=== PATIENT | female | born 1930 | race Caucasian/White ===

== ENCOUNTER 2017-03-08 19:40 | Emergency (ER) | payer MEDICARE, OTHER ==
--- NOTE | 2017-03-08 22:29 | ER Document Report ---
ED GI/ - General Mode of Arrival: Ambulatory Information source: Patient, Relative - son TRAVEL OUTSIDE OF THE [place] IN LAST 30 DAYS: No - HPI Patient complains to provider of: Abdominal pain, Diarrhea, Vaginal bleeding Onset: This evening - Refer to HPI notes Vaginal bleeding (Compared to normal period): Bright red Menstrual period history: Post-menopausal Similar symptoms previously: Yes Recently seen / treated by doctor: No <AKBAR PRATT - Last Filed: 03/09/17 00:11> <BHAVNA SERNA - Last Filed: 03/09/17 05:48> - General Chief Complaint: Rectal Bleeding Stated Complaint: RECTAL BLEEDING Time Seen by Provider: 03/08/17 22:07 Notes: Patient is an 86 year old female presenting to the emergency department for possible rectal bleeding. Patient states she is unsure if her bleeding is coming from her rectum, vagina, or urethra. Patient states it started around 18: 00 or 19:00 this evening. Patient states she has a history of colitis and is unsure if this is a flareup. Patient also has some mild lower abdominal pain which she rates as a 3/5 on the pain scale. Patient also had some episodes of diarrhea this afternoon. Patient denies any vomiting or fever. Patient is allergic to sulfa drugs. Patient's primary care physician is Dr. Caro. (AKBAR PRATT) - Related Data Allergies/Adverse Reactions: Sulfa (Sulfonamide Antibiotics) Allergy (Mild, Verified 03/08/17 20:38) rash Past Medical History - General Information source: Patient, Relative - son - Social History Smoking Status: Never Smoker Cigarette use (# per day): No Chew tobacco use (# tins/day): No Frequency of alcohol use: None Drug Abuse: None Family History: None Patient has suicidal ideation: No Patient has homicidal ideation: No - Past Medical History Cardiac Medical History: Reports: Hx Hypercholesterolemia, Hx Hypertension Endocrine Medical History: Reports: Hx Diabetes Mellitus Type 2 GI Medical History: Reports: Hx Gastroesophageal Reflux Disease, Hx Ulcerative Colitis Musculoskeltal Medical History: Reports Hx Arthritis Past Surgical History: Reports: Hx Genitourinary Surgery - Sling, Hx Hysterectomy - Immunizations Hx Diphtheria, Pertussis, Tetanus Vaccination: Yes Hx Pneumococcal Vaccination: 07/25/11 <AKBAR PRATT - Last Filed: 03/09/17 00:11> Review of Systems - Review of Systems Constitutional: No symptoms reported. denies: Fever EENT: No symptoms reported Cardiovascular: No symptoms reported Respiratory: No symptoms reported Gastrointestinal: See HPI, Abdominal pain, Diarrhea, Rectal bleeding. denies: Nausea, Vomiting Genitourinary: No symptoms reported Female Genitourinary: See HPI, Vaginal bleeding Musculoskeletal: No symptoms reported Skin: No symptoms reported Hematologic/Lymphatic: No symptoms reported Neurological/Psychological: No symptoms reported -: Yes All other systems reviewed and negative <AKBAR PRATT - Last Filed: 03/09/17 00:11> Physical Exam <AKBAR PRATT - Last Filed: 03/09/17 00:11> <BHAVNA SERNA - Last Filed: 03/09/17 05:48> - Vital signs Vitals: Temp Pulse Resp BP Pulse Ox 98.0 F 95 16 130/69 H 94 03/08/17 20:37 03/08/17 20:37 03/08/17 20:37 03/08/17 20:37 03/08/17 20:37 - Notes Notes: GENERAL: Alert, interacts well. No acute distress. HEAD: Normocephalic, atraumatic. EYES: Pupils equal, round, and reactive to light. Extraocular movements intact. ENT: Oral mucosa moist, tongue midline. NECK: Full range of motion. Supple. Trachea midline. LUNGS: Clear to auscultation bilaterally, no wheezes, rales, or rhonchi. No respiratory distress. HEART: Regular rate and rhythm. No murmurs, gallops, or rubs. ABDOMEN: Soft, non-tender. Non-distended. Bowel sounds present in all 4 quadrants.* PELVIC: Blood appears to be coming from the vagina or urethra, no active bleeding.* RECTAL: No blood in rectum, soft brown stool, good rectal tone, no melena. EXTREMITIES: Moves all 4 extremities spontaneously. No edema. No cyanosis. NEUROLOGICAL: Alert and oriented x3. Normal speech. PSYCH: Normal affect, normal mood. SKIN: Warm, dry, normal turgor. No rashes or lesions noted. *Pelvic and Rectal Exam were supervised by Judy Dominguez RN. (AKBAR PRATT) Course - Laboratory Result Diagrams: 03/08/17 22:55 03/08/17 22:55 <AKBAR PRATT - Last Filed: 03/09/17 00:11> - Laboratory Result Diagrams: 03/08/17 22:55 03/08/17 22:55 <BHAVNA SERNA - Last Filed: 03/09/17 05:48> - Re-evaluation Re-evalutation: 03/09/17 01:40 CBC unremarkable, CMP shows slightly elevated BUN at 34 otherwise unremarkable, PTT slightly prolonged at 38.1, PT normal, urinalysis is grossly bloody with small leukocyte esterase. Leukocyte esterase likely comes from the grossly bloody urine rather than true infection. CT scan shows 4.7 mass in the posterior right urinary bladder. No evidence of stone or pyelonephritis. Discussed with patient the importance of quick urology follow-up as this quite possibly represents cancer. Patient has follow-up appointment with her primary care physician tomorrow, information will be printed out for her to take to her primary care physician to help him arrange follow-up with urology as an outpatient. No evidence of obstruction from clots at this time. Patient will return should she have any difficulty urinating. (BHAVNA SERNA) - Vital Signs Vital signs: Temp Pulse Resp BP Pulse Ox 97.6 F 99 18 124/67 95 03/09/17 02:00 03/09/17 02:00 03/09/17 02:00 03/09/17 02:00 03/09/17 02:00 - Laboratory Laboratory results interpreted by me: 03/08/17 03/08/17 03/08/17 20:50 22:55 22:55 RDW 16.3 H APTT Sodium 136.1 L BUN 34 H Est GFR ( Amer) 59 L Est GFR (Non-Af Amer) 48 L Urine Protein >=500 H Ur Leukocyte Esterase SMALL H Urine Ascorbic Acid 20 H 03/08/17 22:55 RDW APTT 38.1 H Sodium BUN Est GFR ( Amer) Est GFR (Non-Af Amer) Urine Protein Ur Leukocyte Esterase Urine Ascorbic Acid Discharge <AKBAR PRATT - Last Filed: 03/09/17 00:11> <BHAVNA SERNA - Last Filed: 03/09/17 05:48> - Discharge Clinical Impression: Bladder mass, Hematuria Condition: Stable Disposition: HOME, SELF-CARE Additional Instructions: You have a 4.2 cm mass in your bladder. It is very important that you are seen by urology within the next month to have this evaluated further. This may be cancer. The mass in your bladder is causing the bleeding. There is no sign of infection today. Please urinate every 2 hours during the day and at least every 4 hours at night. The blood clots coming from your bladder may prevent you from being able to urinate. If that happens you will need a catheter. Please return to the emergency department if you are unable to urinate. Referrals: GLORIA SHEPPARD MD [Primary Care Provider] - Follow up tomorrow Scribe Attestation: 03/09/17 05:48 I personally performed the services described in the documentation, reviewed and edited the documentation which was dictated to the scribe in my presence, and it accurately records my words and actions. (BHAVNA SERNA) Scribe Documentation - Scribe Written by Morgan:: Morgan Palma, 03/08/17 22:45 acting as scribe for :: Aleida <AKBAR PRATT - Last Filed: 03/09/17 00:11>
[2017-03-08 23:17] LABS: APPEARANCE,URINE CLOUDY; BILIRUBIN,URINE NEGATIVE (NEGATIVE); GLUCOSE, URINE NEGATIVE (NEGATIVE); KETONES,URINE NEGATIVE (NEGATIVE); LEUKOCYTE ESTERASE,URINE SMALL (NEGATIVE); NITRITE,URINE NEGATIVE (NEGATIVE); PROTEIN,URINE >=500 mg/dL (NEGATIVE); URINE SPECIFIC GRAVITY 1.014; UROBILINOGEN,URINE NEGATIVE mg/dL (<2.0)
[2017-03-08 23:19] LABS: PROTHROMBIN TIME 13.1 SEC (11.4-15.4)
[2017-03-08 23:20] LABS: PARTIAL THROMBOPLASTIN TIME 38.1 SEC (23.5-35.8)
[2017-03-08 23:22] LABS: ABSOLUTE EOSINOPHILS # (AUTO) 0.2 10^3/uL (0.0-0.6); ABSOLUTE LYMPHOCYTES (AUTO) 1.3 10^3/uL (0.5-4.7); ABSOLUTE MONOCYTES (AUTO) 0.8 10^3/uL (0.1-1.4); BASOPHILS % (AUTO) 0.4 % (0-2); EOSINOPHILS % (AUTO) 2.1 % (0-6); HEMATOCRIT 43.3 % (36.0-47.0); HEMOGLOBIN 14.3 g/dL (12.0-15.5); HGB HCT DIFFERENCE -0.4; LYMPHOCYTES % (AUTO) 13.7 % (13-45); MEAN CORPUSCULAR HEMOGLOBIN 27.4 pg (27.0-33.4); MEAN CORPUSCULAR VOLUME 83 fl (80-97); MONOCYTES % (AUTO) 8.7 % (3-13); RED BLOOD COUNT 5.21 10^6/uL (3.72-5.28); RED CELL DISTRIBUTION WIDTH 16.3 % (11.5-14.0); SEGMENTED NEUTROPHILS % (AUTO) 75.1 % (42-78); WHITE BLOOD COUNT 9.3 10^3/uL (4.0-10.5)
[2017-03-08 23:31] LABS: ALANINE AMINOTRANSFERASE 34 U/L (9-52); ALBUMIN 3.6 g/dL (3.5-5.0); ALKALINE PHOSPHATASE 83 U/L (38-126); ANION GAP 13 (5-19); ASPARTATE AMINO TRANSFERASE 33 U/L (14-36); BILIRUBIN,DIRECT 0.4 mg/dL (0.0-0.4); BILIRUBIN,TOTAL 0.6 mg/dL (0.2-1.3); BLOOD UREA NITROGEN 34 mg/dL (7-20); CALCIUM 9.9 mg/dL (8.4-10.2); CARBON DIOXIDE 24 mmol/L (22-30); CHLORIDE 99 mmol/L (98-107); CREATININE RESULT 1.07 mg/dL (0.52-1.25); GLUCOSE 106 mg/dL (75-110); SODIUM 136.1 mmol/L (137-145); TOTAL PROTEIN 6.6 g/dL (6.3-8.2)
[2017-03-09 02:46] VITALS: BP 124/67
== END 2017-03-09 02:00 | disposition home or self-care (01) ==
LOC: ER 19:40
DX: N32.89 Other specified disorders of bladder (principal); R31.9 Hematuria, unspecified; R10.9 Unspecified abdominal pain; R19.7 Diarrhea, unspecified; E78.00 Pure hypercholesterolemia, unspecified; I10 Essential (primary) hypertension; E11.9 Type 2 diabetes mellitus without complications; K21.9 Gastro-esophageal reflux disease without esophagitis; Z88.2 Allergy status to sulfonamides; Z90.710 Acquired absence of both cervix and uterus
CPT/HCPCS: 36415; 51701; 76380; 80053; 81001; 85025; 85610; 85730; 87086; 87088; 87186; 99284

== ENCOUNTER 2017-03-22 19:16 | Inpatient (IN) | payer MEDICARE, OTHER ==
[2017-03-22] MEDS ORDERED: NORMAL SALINE 1000 ML 1,000 ML IV ONE (20:38)
[2017-03-22 21:24] LABS: ABSOLUTE BASOPHILS # (AUTO) 0.1 10^3/uL (0.0-0.2); ABSOLUTE LYMPHOCYTES (AUTO) 1.2 10^3/uL (0.5-4.7); ABSOLUTE MONOCYTES (AUTO) 1.3 10^3/uL (0.1-1.4); ABSOLUTE NEUT (AUTO) 15.1 10^3/uL (1.7-8.2); BASOPHILS % (AUTO) 0.4 % (0-2); EOSINOPHILS % (AUTO) 0.1 % (0-6); HEMOGLOBIN 12.9 g/dL (12.0-15.5); HGB HCT DIFFERENCE -1.3; LYMPHOCYTES % (AUTO) 6.9 % (13-45); MEAN CORPUSCULAR HEMOGLOBIN 26.9 pg (27.0-33.4); MEAN CORPUSCULAR HGB CONC 32.4 g/dL (32.0-36.0); MEAN CORPUSCULAR VOLUME 83 fl (80-97); MONOCYTES % (AUTO) 7.5 % (3-13); RED BLOOD COUNT 4.81 10^6/uL (3.72-5.28); RED CELL DISTRIBUTION WIDTH 15.6 % (11.5-14.0); SEGMENTED NEUTROPHILS % (AUTO) 85.1 % (42-78); WHITE BLOOD COUNT 17.7 10^3/uL (4.0-10.5)
[2017-03-22 22:23] LABS: ALANINE AMINOTRANSFERASE 29 U/L (9-52); ALBUMIN 3.2 g/dL (3.5-5.0); ALKALINE PHOSPHATASE 60 U/L (38-126); ANION GAP 10 (5-19); ASPARTATE AMINO TRANSFERASE 25 U/L (14-36); BILIRUBIN,DIRECT 0.3 mg/dL (0.0-0.4); BILIRUBIN,TOTAL 0.8 mg/dL (0.2-1.3); BLOOD UREA NITROGEN 31 mg/dL (7-20); CALCIUM 8.6 mg/dL (8.4-10.2); CARBON DIOXIDE 21 mmol/L (22-30); CHLORIDE 95 mmol/L (98-107); CREATINE KINASE 55 U/L (30-135); CREATININE RESULT 1.19 mg/dL (0.52-1.25); GLUCOSE 94 mg/dL (75-110); POTASSIUM 4.8 mmol/L (3.6-5.0); SODIUM 125.8 mmol/L (137-145); TOTAL PROTEIN 6.3 g/dL (6.3-8.2)
[2017-03-22 22:35] LABS: CREATINE KINASE MB 1.08 ng/mL (<4.55); TROPONIN I < 0.012 ng/mL
[2017-03-22 22:42] LABS: APPEARANCE,URINE CLOUDY; BILIRUBIN,URINE NEGATIVE (NEGATIVE); GLUCOSE, URINE NEGATIVE (NEGATIVE); KETONES,URINE NEGATIVE (NEGATIVE); LEUKOCYTE ESTERASE,URINE LARGE (NEGATIVE); NITRITE,URINE NEGATIVE (NEGATIVE); PROTEIN,URINE 30 mg/dL (NEGATIVE); URINE SPECIFIC GRAVITY 1.006; UROBILINOGEN,URINE NEGATIVE mg/dL (<2.0)
[2017-03-22] MEDS ORDERED: CEFTRIAXONE 1 GM/D5W RTU 50 ML IV ONE (22:44)
--- NOTE | 2017-03-22 23:15 | ER Document Report ---
ED General - General Chief Complaint: Weakness Stated Complaint: WEAKNESS Time Seen by Provider: 03/22/17 20:38 Mode of Arrival: Ambulatory Information source: Patient, Parent Notes: 86-year-old female recent diagnosis of UTI presents with complaints of weakness decreased appetite. Patient denies any fevers or chills notes she was recently placed on Cipro TRAVEL OUTSIDE OF THE [place] IN LAST 30 DAYS: No - HPI Onset: Last week Onset/Duration: Persistent Quality of pain: No pain Severity: Mild Pain Level: Denies Associated symptoms: Weakness Exacerbated by: Denies Relieved by: Denies Similar symptoms previously: Yes Recently seen / treated by doctor: Yes - Related Data Allergies/Adverse Reactions: Sulfa (Sulfonamide Antibiotics) Allergy (Mild, Verified 03/22/17 19:40) rash Past Medical History - Social History Smoking Status: Never Smoker Cigarette use (# per day): No Chew tobacco use (# tins/day): No Smoking Education Provided: No Frequency of alcohol use: None Drug Abuse: None Family History: None Patient has suicidal ideation: No Patient has homicidal ideation: No - Past Medical History Cardiac Medical History: Reports: Hx Hypercholesterolemia, Hx Hypertension Endocrine Medical History: Reports: Hx Diabetes Mellitus Type 2 Renal/ Medical History: Denies: Hx Peritoneal Dialysis GI Medical History: Reports: Hx Gastroesophageal Reflux Disease, Hx Ulcerative Colitis Musculoskeltal Medical History: Reports Hx Arthritis Past Surgical History: Reports: Hx Genitourinary Surgery - Sling, Hx Hysterectomy - Immunizations Hx Diphtheria, Pertussis, Tetanus Vaccination: Yes Hx Pneumococcal Vaccination: 07/25/11 Review of Systems - Review of Systems Notes: PHYSICAL EXAMINATION: GENERAL: Elderly female appears younger than stated age HEAD: Atraumatic, normocephalic. EYES: Pupils equal round and reactive to light, extraocular movements intact, conjunctiva are normal. ENT: Nares patent, oropharynx clear without exudates. Moist mucous membranes. NECK: Normal range of motion, supple without lymphadenopathy LUNGS: Breath sounds clear to auscultation bilaterally and equal. No wheezes rales or rhonchi. HEART: Regular rate and rhythm without murmurs ABDOMEN: Soft, nontender, nondistended abdomen. No guarding, no rebound. No masses appreciated. Female : deferred Musculoskeletal: Normal range of motion, no pitting or edema. No cyanosis. NEUROLOGICAL: Cranial nerves grossly intact. Normal speech, normal gait. Normal sensory, motor exams PSYCH: Normal mood, normal affect. SKIN: Warm, Dry, normal turgor, no rashes or lesions noted. Physical Exam - Vital signs Vitals: Temp Pulse Resp BP Pulse Ox 98.1 F 110 H 18 103/56 L 95 03/22/17 19:37 03/22/17 19:37 03/22/17 19:37 03/22/17 19:37 03/22/17 19:37 Course - Re-evaluation Re-evalutation: 03/22/17 23:38 Patient's white count was noted to be elevated, she was slightly tachycardic. Patient does have a urinary tract infection. Given that she is infectious process a septic workup has been ordered. Lactic acid is pending. Patient was given IV fluids and antibiotics. Patient will be admitted to the hospitalist service - Vital Signs Vital signs: Temp Pulse Resp BP Pulse Ox 98.1 F 110 H 19 108/70 98 03/22/17 19:37 03/22/17 19:37 03/22/17 21:44 03/22/17 21:44 03/22/17 21:44 - Laboratory Result Diagrams: 03/22/17 21:08 03/22/17 21:50 Laboratory results interpreted by me: 03/22/17 03/22/17 03/22/17 21:08 21:50 21:50 WBC 17.7 H MCH 26.9 L RDW 15.6 H Seg Neutrophils % 85.1 H Lymphocytes % 6.9 L Absolute Neutrophils 15.1 H Sodium 125.8 L Chloride 95 L Carbon Dioxide 21 L BUN 31 H Est GFR ( Amer) 52 L Est GFR (Non-Af Amer) 43 L Albumin 3.2 L Urine Protein 30 H Urine Blood SMALL H Ur Leukocyte Esterase LARGE H Discharge - Discharge Clinical Impression: Weakness, Hyponatremia UTI (urinary tract infection) Qualifiers: Urinary tract infection type: acute cystitis Hematuria presence: without hematuria Qualified Code(s): N30.00 - Acute cystitis without hematuria Sepsis Qualifiers: Sepsis type: sepsis due to unspecified organism Qualified Code(s): A41.9 - Sepsis, unspecified organism Condition: Stable Disposition: ADMITTED INPATIENT Admitting Provider: Hospitalist Unit Admitted: Telemetry Referrals: GLORAI SHEPPARD MD [Primary Care Provider] - Follow up as needed
[2017-03-22] MEDS ORDERED: MAGNESIUM HYDROXIDE SUSP 30 ML UDCUP PO PRN (23:20)
[2017-03-22] MEDS ORDERED: MAG HYDROX/AL HYDROX/SIMETH SUSP 30 ML UDCUP PO PRN (23:20)
[2017-03-22] MEDS ORDERED: ONDANSETRON HCL INJ/PF 4 MG/2 ML SDV IV PRN (23:20)
[2017-03-22] MEDS ORDERED: IPRATROPIUM/ALBUTEROL 0.5-2.5 MG/3 ML AMPUL NEB PRN (23:20)
[2017-03-22] MEDS ORDERED: LACTULOSE SYRUP 20 GM/30 ML UDCUP PO ONE (23:23)
[2017-03-22] MEDS ORDERED: MINERAL OIL ENEMA 133 ML PR PRN (23:24)
[2017-03-22 23:47] LABS: MAGNESIUM 1.7 mg/dL (1.6-2.3); PHOSPHORUS 3.5 mg/dL (2.5-4.5)
[2017-03-23 00:33] LABS: CREATINE KINASE MB 1.39 ng/mL (<4.55)
[2017-03-23 00:37] LABS: TROPONIN I < 0.012 ng/mL
[2017-03-23] MEDS: NORMAL SALINE 1000 ML 1,000 ML IV PRN ×2 (00:46→05:38)
[2017-03-23] MEDS: HEPARIN SOD (PORCINE) 5,000 UNIT/ML 1 ML SYRINGE SUBCUT SCH ×3 (05:38→21:38)
[2017-03-23 06:16] LABS: ABSOLUTE LYMPHOCYTES (AUTO) 0.9 10^3/uL (0.5-4.7); ABSOLUTE MONOCYTES (AUTO) 0.6 10^3/uL (0.1-1.4); ABSOLUTE NEUT (AUTO) 6.2 10^3/uL (1.7-8.2); BASOPHILS % (AUTO) 0.3 % (0-2); EOSINOPHILS % (AUTO) 0.6 % (0-6); HEMATOCRIT 35.5 % (36.0-47.0); HEMOGLOBIN 11.5 g/dL (12.0-15.5); LYMPHOCYTES % (AUTO) 11.2 % (13-45); MEAN CORPUSCULAR HEMOGLOBIN 27.2 pg (27.0-33.4); MEAN CORPUSCULAR HGB CONC 32.5 g/dL (32.0-36.0); MEAN CORPUSCULAR VOLUME 84 fl (80-97); RED BLOOD COUNT 4.24 10^6/uL (3.72-5.28); RED CELL DISTRIBUTION WIDTH 15.5 % (11.5-14.0); SEGMENTED NEUTROPHILS % (AUTO) 79.9 % (42-78); WHITE BLOOD COUNT 7.8 10^3/uL (4.0-10.5)
[2017-03-23 06:39] LABS: ANION GAP 9 (5-19); BLOOD UREA NITROGEN 26 mg/dL (7-20); CALCIUM 8.4 mg/dL (8.4-10.2); CARBON DIOXIDE 20 mmol/L (22-30); CHLORIDE 103 mmol/L (98-107); CREATINE KINASE 43 U/L (30-135); CREATININE RESULT 0.94 mg/dL (0.52-1.25); GLUCOSE 89 mg/dL (75-110); POTASSIUM 4.9 mmol/L (3.6-5.0); SODIUM 132.4 mmol/L (137-145)
[2017-03-23 06:42] LABS: TROPONIN I < 0.012 ng/mL
[2017-03-23] MEDS ORDERED: METOPROLOL SUCCINATE 50 MG TAB.SR.24H PO SCH (10:00)
[2017-03-23] MEDS ORDERED: ASPIRIN 325 MG TABLET PO SCH (10:00)
[2017-03-23 12:26] LABS: CREATINE KINASE MB 1.49 ng/mL (<4.55)
[2017-03-23 12:30] LABS: TROPONIN I < 0.012 ng/mL
--- NOTE | 2017-03-23 14:39 | PDOC PROGRESS REPORT ---
Subjective Progress Note for:: 03/23/17 Subjective:: Patient states that she is feeling generally much better than she did on admission. Nursing reports several issues including the fact the patient normally takes metformin at home. Patient also states that her doctor stopped her aspirin secondary to hematuria recently. Patient metoprolol was held today secondary to low blood pressure. Patient denies fever, chills, headache, chest pain, shortness of breath, abdominal pain, nausea, vomiting. Physical Exam Vital Signs: Temp Pulse Resp BP Pulse Ox 97.3 F 86 18 122/85 95 03/23/17 11:56 03/23/17 14:00 03/23/17 11:56 03/23/17 11:56 03/23/17 11:56 Intake & Output 03/22/17 03/23/17 03/24/17 06:59 06:59 06:59 Intake Total 1076 Output Total 150 Balance 926 Weight 52.1 kg GENERAL: No acute distress HEENT: Conjunctiva clear, nonicteric, moist mucous membranes, no JVD, midline trachea RESPIRATORY: Clear to auscultation bilaterally, no wheezes, no rhonchi CARDIAC: Regular rate and rhythm, no murmurs/gallops/rubs ABDOMEN: Soft, nondistended, nontender, positive bowel sounds, no rebound, no guarding EXTREMETIES: No edema, cyanosis, clubbing NEUROLOGIC: Alert, oriented to person/place/time, CN's grossly intact, no focal deficits SKIN: No rash, wounds PSYCH: Normal mood, normal affect Results Laboratory Results: 03/23/17 05:42 03/23/17 05:42 03/23/17 03/23/17 03/23/17 01:05 05:42 05:42 WBC 7.8 RBC 4.24 Hgb 11.5 L Hct 35.5 L MCV 84 MCH 27.2 MCHC 32.5 RDW 15.5 H Plt Count 259 Seg Neutrophils % 79.9 H Lymphocytes % 11.2 L Monocytes % 8.0 Eosinophils % 0.6 Basophils % 0.3 Absolute Neutrophils 6.2 Absolute Lymphocytes 0.9 Absolute Monocytes 0.6 Absolute Eosinophils 0.0 Absolute Basophils 0.0 Sodium 132.4 L Potassium 4.9 Chloride 103 Carbon Dioxide 20 L Anion Gap 9 BUN 26 H Creatinine 0.94 Est GFR ( Amer) > 60 Est GFR (Non-Af Amer) 56 L Glucose 89 Lactic Acid 0.9 Calcium 8.4 03/22/17 03/22/17 03/23/17 23:30 23:30 05:42 Creatine Kinase 61 43 CK-MB (CK-2) 1.39 Troponin I < 0.012 03/23/17 03/23/17 03/23/17 05:42 11:33 11:33 Creatine Kinase 36 CK-MB (CK-2) 1.50 1.49 Troponin I < 0.012 < 0.012 Assessment & Plan - Diagnosis (1) Sepsis Qualifiers: Sepsis type: sepsis due to unspecified organism Qualified Code(s): A41.9 - Sepsis, unspecified organism Is this a current diagnosis for this admission?: YesPlan: Secondary to urinary tract infection. White blood count now normal. Blood pressure low but stable. (2) UTI (urinary tract infection) Qualifiers: Urinary tract infection type: acute cystitis Hematuria presence: without hematuria Qualified Code(s): N30.00 - Acute cystitis without hematuria Is this a current diagnosis for this admission?: YesPlan: Patient recently completed 10 days of Cipro and has recurrence of urinary tract infection. I think we should continue IV Rocephin ending further culture and sensitivity. Patient has an appointment tomorrow to see a urologist about repeating CT scan for abnormal bladder findings. I will repeat CT scan today. (3) Hyponatremia Is this a current diagnosis for this admission?: YesPlan: Likely secondary to poor oral intake recently from infection as well as Lasix administration. Continue to hold Lasix. Discontinue IV fluids. Sodium improving. (4) Diabetes Qualifiers: Diabetes mellitus type: type 2 Is this a current diagnosis for this admission?: YesPlan: Resume metformin. Well controlled. (5) Hypertension Is this a current diagnosis for this admission?: YesPlan: Hold metoprolol for now secondary to low blood pressure. (6) Weakness Is this a current diagnosis for this admission?: YesPlan: Secondary to urinary tract infection and hyponatremia. Improving. - Time Time Spent with patient: 35 or more minutes Anticipated discharge: Home Within: within 48 hours
--- NOTE | 2017-03-23 15:57 | RADIOLOGY REPORT (SQ) ---
EXAM DESCRIPTION: CT ABD/PELVIS NO ORAL OR IV COMPLETED DATE/TIME: 03/23/2017 3:23 pm REASON FOR STUDY: UTI, h/o abn CT bladder COMPARISON: CT abdomen pelvis 03/09/[address] abdomen pelvis with IV contrast 08/10/2013, 01/13/2012 TECHNIQUE: CT scan of the abdomen and pelvis performed without intravenous or oral contrast. Images reviewed with lung, soft tissue, and bone windows. Reconstructed coronal and sagittal MPR images revi ewed. All images stored on PACS. All CT scanners at this facility use dose modulation, iterative reconstruction, and/or weight based d osing when appropriate to reduce radiation dose to as low as reasonably achievable (ALARA). [facility]: Dose Right [facility]: CareDose [facility]: Dose Right [facility]: Teradose 4D [facility]: ABS Medical RADIATION DOSE: 3.32mGy. LIMITATIONS: No oral or IV contrast FINDINGS: LOWER CHEST: Lung bases are clear. Large retrocardiac hiatal hernia containing the majori ty of the stomach body and fundus NON-CONTRASTED LIVER, SPLEEN, ADRENALS: Evaluation limited by lack of IV contrast. No identified sign ificant masses. PANCREAS: No masses. No peripancreatic inflammatory changes. GALLBLADDER: Small stones in the gallbladder, no gallbladder wall thickening or pericholecystic fluid . RIGHT KIDNEY AND URETER: No suspicious masses. Assessment limited by lack of IV contrast. No signif icant calcifications. No hydronephrosis or hydroureter. LEFT KIDNEY AND URETER: No suspicious masses. Assessment limited by lack of IV contrast. No signifi cant calcifications. No hydronephrosis or hydroureter. AORTA AND RETROPERITONEUM: No aneurysm. No retroperitoneal masses or adenopathy. BOWEL AND PERITONEAL CAVITY: No obvious masses or inflammatory changes. No free fluid. Scattered col onic diverticuli without CT signs of acute diverticulitis. APPENDIX: Not identified. No right lower quadrant inflammatory changes. 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 The filling def ect in the rightward bladder on prior CT 03/09/2017 is no longer identified. This could have represen tk blood clot or debris in the dependent portion of the bladder on 03/09/2017. Consider bladder ultr asound for followup. Post hysterectomy. Tiny fat containing femoral hernias bilaterally. BONES: No significant findings. OTHER: No other significant finding. IMPRESSION: No acute findings. Findings in the bladder seen 03/09/2017 are no longer present. Bladder ultrasound could be useful for followup. Findings discussed with Dr. Briscoe TECHNICAL DOCUMENTATION: JOB ID: [id number] Quality ID # [id number]: Final reports with documentation of one or more dose reduction techniques (e.g., Au tomated exposure control, adjustment of the mA and/or kV according to patient size, use of iterative reconstruction technique) 2010 [employer]- All Rights Reserved
[2017-03-23] MEDS: METFORMIN HCL 500 MG TABLET PO SCH (17:55)
[2017-03-23] MEDS: ALPRAZOLAM 0.25 MG TABLET PO PRN (19:38)
[2017-03-23] MEDS: ACETAMINOPHEN 325 MG TABLET PO PRN (20:01)
[2017-03-23] MEDS: SIMVASTATIN 10 MG TABLET PO SCH (21:37)
[2017-03-23] MEDS ORDERED: CEFTRIAXONE 1 GM/D5W RTU 1 GM/50 ML RTUPB IV SCH (22:00)
[2017-03-24] MEDS: HEPARIN SOD (PORCINE) 5,000 UNIT/ML 1 ML SYRINGE SUBCUT SCH ×3 (05:52→22:02)
[2017-03-24 06:43] LABS: ABSOLUTE EOSINOPHILS # (AUTO) 0.1 10^3/uL (0.0-0.6); ABSOLUTE MONOCYTES (AUTO) 0.8 10^3/uL (0.1-1.4); ABSOLUTE NEUT (AUTO) 8.9 10^3/uL (1.7-8.2); BASOPHILS % (AUTO) 0.4 % (0-2); EOSINOPHILS % (AUTO) 0.8 % (0-6); HEMATOCRIT 34.4 % (36.0-47.0); HEMOGLOBIN 11.2 g/dL (12.0-15.5); HGB HCT DIFFERENCE -0.8; LYMPHOCYTES % (AUTO) 9.3 % (13-45); MEAN CORPUSCULAR HGB CONC 32.6 g/dL (32.0-36.0); MEAN CORPUSCULAR VOLUME 83 fl (80-97); MONOCYTES % (AUTO) 7.7 % (3-13); RED BLOOD COUNT 4.15 10^6/uL (3.72-5.28); RED CELL DISTRIBUTION WIDTH 15.8 % (11.5-14.0); SEGMENTED NEUTROPHILS % (AUTO) 81.8 % (42-78); WHITE BLOOD COUNT 10.8 10^3/uL (4.0-10.5)
[2017-03-24 06:55] LABS: ANION GAP 7 (5-19); BLOOD UREA NITROGEN 17 mg/dL (7-20); CALCIUM 8.6 mg/dL (8.4-10.2); CARBON DIOXIDE 19 mmol/L (22-30); CHLORIDE 107 mmol/L (98-107); GLUCOSE 103 mg/dL (75-110); POTASSIUM 4.4 mmol/L (3.6-5.0); SODIUM 132.5 mmol/L (137-145)
[2017-03-24] MEDS: ALLOPURINOL 100 MG TABLET PO SCH (09:04)
[2017-03-24] MEDS: METFORMIN HCL 500 MG TABLET PO SCH ×2 (09:04→17:53)
[2017-03-24] MEDS: CHOLECALCIFEROL (D3) 1,000 UNIT TABLET PO SCH (09:04)
[2017-03-24] MEDS ORDERED: CHOLECALCIFEROL 2000 MG PO SCH (10:00)
[2017-03-24] MEDS ORDERED: METOPROLOL SUCCINATE 50 MG TAB.SR.24H PO SCH (10:00)
--- NOTE | 2017-03-24 11:25 | PDOC PROGRESS REPORT ---
Subjective Progress Note for:: 03/24/17 Subjective:: Patient feels generally better than she did on admission. She has been out of bed to bedside chair. She is eating well. Her son and [id number] expressed concerns about her returning home alone given her generalized weakness. They are requesting the patient be more ambulatory prior to returning home. Patient denies fever, chills, headache, new focal weakness, chest pain, shortness of breath, abdominal pain, nausea, vomiting, diarrhea, constipation. Physical Exam Vital Signs: Temp Pulse Resp BP Pulse Ox 97.5 F 82 20 98/57 L 99 03/24/17 07:56 03/24/17 07:56 03/24/17 07:56 03/24/17 07:56 03/24/17 07:56 Intake & Output 03/23/17 03/24/17 03/25/17 06:59 06:59 06:59 Intake Total 1076 1780 Output Total 150 100 Balance 926 1680 Weight 52.1 kg 53.8 kg GENERAL: No acute distress HEENT: Conjunctiva clear, nonicteric, moist mucous membranes, no JVD, midline trachea RESPIRATORY: Clear to auscultation bilaterally, no wheezes, no rhonchi CARDIAC: Regular rate and rhythm, no murmurs/gallops/rubs ABDOMEN: Soft, nondistended, nontender, positive bowel sounds, no rebound, no guarding EXTREMETIES: No edema, cyanosis, clubbing NEUROLOGIC: Alert, oriented to person/place/time, CN's grossly intact, no focal deficits SKIN: No rash, wounds PSYCH: Normal mood, normal affect Results Laboratory Results: 03/24/17 06:29 03/24/17 06:29 03/24/17 03/24/17 06:29 06:29 WBC 10.8 H RBC 4.15 Hgb 11.2 L Hct 34.4 L MCV 83 MCH 27.0 MCHC 32.6 RDW 15.8 H Plt Count 263 Seg Neutrophils % 81.8 H Lymphocytes % 9.3 L Monocytes % 7.7 Eosinophils % 0.8 Basophils % 0.4 Absolute Neutrophils 8.9 H Absolute Lymphocytes 1.0 Absolute Monocytes 0.8 Absolute Eosinophils 0.1 Absolute Basophils 0.0 Sodium 132.5 L Potassium 4.4 Chloride 107 Carbon Dioxide 19 L Anion Gap 7 BUN 17 Creatinine 1.00 Est GFR ( Amer) > 60 Est GFR (Non-Af Amer) 52 L Glucose 103 Calcium 8.6 03/22/17 03/22/17 03/23/17 23:30 23:30 05:42 Creatine Kinase 61 43 CK-MB (CK-2) 1.39 Troponin I < 0.012 03/23/17 03/23/17 03/23/17 05:42 11:33 11:33 Creatine Kinase 36 CK-MB (CK-2) 1.50 1.49 Troponin I < 0.012 < 0.012 Impressions: Abdomen/Pelvis CT 03/23/17 00:00 IMPRESSION: No acute findings. Findings in the bladder seen 03/09/2017 are no longer present. Bladder ultrasound could be useful for followup. Findings discussed with Dr. Briscoe Assessment & Plan - Diagnosis (1) Sepsis Qualifiers: Sepsis type: sepsis due to unspecified organism Qualified Code(s): A41.9 - Sepsis, unspecified organism Is this a current diagnosis for this admission?: YesPlan: Secondary to urinary tract infection. White blood count now normal. Blood pressure low but stable. (2) UTI (urinary tract infection) Qualifiers: Urinary tract infection type: acute cystitis Hematuria presence: without hematuria Qualified Code(s): N30.00 - Acute cystitis without hematuria Is this a current diagnosis for this admission?: YesPlan: Patient recently completed 10 days of Cipro and has recurrence of urinary tract infection. Urine culture with mixed jazmine. Discontinue IV Rocephin. Start oral cefpodoxime. Patient has an appointment tomorrow to see a urologist about repeating CT scan for abnormal bladder findings. Repeat CT scan yesterday showed resolution of prior bladder abnormality. Previous abnormality may have represented blood in the bladder secondary to urinary tract infection. Patient will need to follow-up with Dr. George of urology after discharge. (3) Hyponatremia Is this a current diagnosis for this admission?: YesPlan: Likely secondary to poor oral intake recently from infection as well as Lasix administration. Continue to hold Lasix. Sodium improving. (4) Diabetes Qualifiers: Diabetes mellitus type: type 2 Is this a current diagnosis for this admission?: Yes (5) Hypertension Is this a current diagnosis for this admission?: YesPlan: Hold metoprolol for now secondary to low blood pressure. (6) Weakness Is this a current diagnosis for this admission?: YesPlan: Secondary to urinary tract infection and hyponatremia. Improving. Physical therapy to evaluate. Patient resides at home alone and has steps in her house. - Time Time Spent with patient: 25-34 minutes Anticipated discharge: Home with Homehealth Within: within 24 hours
[2017-03-24] MEDS: ALPRAZOLAM 0.25 MG TABLET PO PRN (16:52)
[2017-03-24] MEDS ORDERED: LORAZEPAM INJ 2 MG/1 ML VIAL ONE (18:20)
[2017-03-24] MEDS ORDERED: LORAZEPAM INJ 2 MG/1 ML VIAL IV ONE (18:45)
[2017-03-24] MEDS: ACETAMINOPHEN 325 MG TABLET PO PRN (19:37)
[2017-03-24] MEDS ORDERED: PHARMACY COMMUNICATION ORDER MC SCH (20:00)
[2017-03-24] MEDS ORDERED: PIPERACILLIN SODIUM/TAZOBACTAM 3.375 GM in NORMAL SALINE 100 ML IV SCH (20:00)
[2017-03-24] MEDS: PIPERACILLIN SODIUM/TAZOBACTAM 2.25 GM in NORMAL SALINE 50 ML IV SCH (20:51)
[2017-03-24] MEDS ORDERED: CEFPODOXIME 200 MG TABLET PO SCH (22:00)
[2017-03-24] MEDS: SIMVASTATIN 10 MG TABLET PO SCH (22:02)
[2017-03-25] MEDS: PIPERACILLIN SODIUM/TAZOBACTAM 2.25 GM in NORMAL SALINE 50 ML IV SCH ×2 (04:21→09:40)
[2017-03-25] MEDS: HEPARIN SOD (PORCINE) 5,000 UNIT/ML 1 ML SYRINGE SUBCUT SCH ×3 (05:45→22:03)
[2017-03-25 06:17] LABS: ANION GAP 11 (5-19); BLOOD UREA NITROGEN 14 mg/dL (7-20); CARBON DIOXIDE 18 mmol/L (22-30); CHLORIDE 105 mmol/L (98-107); CREATININE RESULT 0.87 mg/dL (0.52-1.25); GLUCOSE 90 mg/dL (75-110); POTASSIUM 4.5 mmol/L (3.6-5.0); SODIUM 133.7 mmol/L (137-145)
[2017-03-25 06:18] LABS: ABSOLUTE EOSINOPHILS # (AUTO) 0.1 10^3/uL (0.0-0.6); ABSOLUTE LYMPHOCYTES (AUTO) 1.2 10^3/uL (0.5-4.7); ABSOLUTE MONOCYTES (AUTO) 0.7 10^3/uL (0.1-1.4); ABSOLUTE NEUT (AUTO) 9.8 10^3/uL (1.7-8.2); BASOPHILS % (AUTO) 0.4 % (0-2); EOSINOPHILS % (AUTO) 0.8 % (0-6); HEMATOCRIT 35.7 % (36.0-47.0); HEMOGLOBIN 11.5 g/dL (12.0-15.5); HGB HCT DIFFERENCE -1.2; LYMPHOCYTES % (AUTO) 9.9 % (13-45); MEAN CORPUSCULAR HEMOGLOBIN 26.6 pg (27.0-33.4); MEAN CORPUSCULAR HGB CONC 32.2 g/dL (32.0-36.0); MEAN CORPUSCULAR VOLUME 83 fl (80-97); MONOCYTES % (AUTO) 6.1 % (3-13); RED BLOOD COUNT 4.32 10^6/uL (3.72-5.28); RED CELL DISTRIBUTION WIDTH 16.2 % (11.5-14.0); SEGMENTED NEUTROPHILS % (AUTO) 82.8 % (42-78); WHITE BLOOD COUNT 11.8 10^3/uL (4.0-10.5)
[2017-03-25] MEDS: METFORMIN HCL 500 MG TABLET PO SCH ×2 (09:39→18:15)
[2017-03-25] MEDS: CHOLECALCIFEROL (D3) 1,000 UNIT TABLET PO SCH (09:40)
[2017-03-25] MEDS: ALLOPURINOL 100 MG TABLET PO SCH (09:40)
[2017-03-25] MEDS ORDERED: MAG HYDROX/AL HYDROX/SIMETH SUSP 30 ML UDCUP PO PRN (10:03)
[2017-03-25] MEDS ORDERED: ACETAMINOPHEN 325 MG TABLET PO PRN (10:04)
[2017-03-25] MEDS ORDERED: MAGNESIUM HYDROXIDE SUSP 30 ML UDCUP PO PRN (10:04)
[2017-03-25] MEDS ORDERED: ONDANSETRON HCL INJ/PF 4 MG/2 ML SDV IV PRN (10:06)
[2017-03-25] MEDS ORDERED: NORMAL SALINE 10 ML SDV (AFTER EACH USE) IV PRN (14:14)
--- NOTE | 2017-03-25 14:17 | RADIOLOGY REPORT (SQ) ---
EXAM DESCRIPTION: PICC INSERTION; FLUORO/CV PLACEMENT; U/S GUIDE FOR VASCULAR ACCESS COMPLETED DATE/TIME: 03/25/2017 2:07 pm REASON FOR STUDY: prolonged IV Abx; IV ACCESS, IV ABX; IV ACCESS COMPARISON: None. FLUOROSCOPY TIME: 3 seconds 1 ultrasound and 1 digital chest fluoroscopic images saved to PACS. TECHNIQUE: Fluoroscopic and ultrasound guided PICC placement. LIMITATIONS: None. PROCEDURE: After written consent and assessment were obtained, the patient was brought into the fluo roscopy room and place supine on the table. Ultrasound was used on the patient's right arm for PICC access. The right arm was prepped and draped in a sterile fashion along with the ultrasound probe. Th e entry site was anesthetized with 3.5 mL of 1% lidocaine. A 21 gauge 7 cm needle was advanced throug h the skin and into the right basilic vein under live ultrasound guidance. An ultrasound image was s aved to PACS confirming access site. A .018 guide wire was then inserted through the needle and into the venous system. The needle was the removed and an 11 blade scalpel was used to make a 1cm skin in cision. A 5 fr peel-away sheath was advanced over the wire and into the venous system. A measurement was then made using the existing wire and live fluoroscopic guidance. The wire was then removed and the trimmed. The PICC was advanced through the peel-away sheath and into the venous system. The peel- away sheath was removed and the catheter was adhered to the patients arm with a stat lock. The cathet er was then aspirated and flushed and a sterile bandage was placed over the access site. A fluorosco pic spot image was saved to PACS confirming the catheter tip within the superior vena cava. IMPRESSION: SUCCESSFUL PLACEMENT OF A 5 FR DUAL LUMEN 30 CM PICC IN THE right basilic VEIN. COMMENT: Patient medication list reviewed: Yes- Quality ID# [id number]:Eligible professional attests to doc umenting in the medical record they obtained, updated, or reviewed the patient's current medications. . Quality ID 145: Final reports for procedures using fluoroscopy that document radiation exposure mamta philip, or exposure time and number of fluorographic images (if radiation exposure indices are not avail able) Quality ID #[id number]: The patient was prepped and draped using maximum sterile barrier technique including cap, mask, sterile gown, sterile gloves, a large sterile sheet, hand hygiene, and 2% Chlorhexidine fo r cutaneous antisepsis. When ultrasound is used, sterile ultrasound techniques are followed requiring sterile gel and sterile probes. TECHNICAL DOCUMENTATION: JOB ID: [id number] [employer] [facility]- All Rights Reserved
--- NOTE | 2017-03-25 14:17 | PDOC PROGRESS REPORT ---
Subjective Progress Note for:: 03/25/17 Subjective:: Patient had a fever of 103F overnight. She does not feel particularly worse than she did yesterday. Patient denies headache, new focal weakness, chest pain, shortness of breath, abdominal pain, nausea, vomiting, diarrhea, constipation. Physical Exam Vital Signs: Temp Pulse Resp BP Pulse Ox 97.8 F 89 16 103/60 98 03/25/17 07:30 03/25/17 07:30 03/25/17 03:30 03/25/17 07:30 03/25/17 07:30 Intake & Output 03/24/17 03/25/17 03/26/17 06:59 06:59 06:59 Intake Total 1780 2270 Output Total 100 500 Balance 1680 1770 Weight 53.8 kg 50.5 kg GENERAL: No acute distress HEENT: Conjunctiva clear, nonicteric, moist mucous membranes, no JVD, midline trachea RESPIRATORY: Clear to auscultation bilaterally, no wheezes, no rhonchi CARDIAC: Regular rate and rhythm, no murmurs/gallops/rubs ABDOMEN: Soft, nondistended, nontender, positive bowel sounds, no rebound, no guarding EXTREMETIES: No edema, cyanosis, clubbing NEUROLOGIC: Alert, oriented to person/place/time, CN's grossly intact, no focal deficits SKIN: No rash, wounds PSYCH: Normal mood, normal affect Results Laboratory Results: 03/25/17 05:22 03/25/17 05:22 03/25/17 03/25/17 05:22 05:22 WBC 11.8 H RBC 4.32 Hgb 11.5 L Hct 35.7 L MCV 83 MCH 26.6 L MCHC 32.2 RDW 16.2 H Plt Count 277 Seg Neutrophils % 82.8 H Lymphocytes % 9.9 L Monocytes % 6.1 Eosinophils % 0.8 Basophils % 0.4 Absolute Neutrophils 9.8 H Absolute Lymphocytes 1.2 Absolute Monocytes 0.7 Absolute Eosinophils 0.1 Absolute Basophils 0.0 Sodium 133.7 L Potassium 4.5 Chloride 105 Carbon Dioxide 18 L Anion Gap 11 BUN 14 Creatinine 0.87 Est GFR ( Amer) > 60 Est GFR (Non-Af Amer) > 60 Glucose 90 Calcium 9.0 03/22/17 03/22/17 03/23/17 23:30 23:30 05:42 Creatine Kinase 61 43 CK-MB (CK-2) 1.39 Troponin I < 0.012 03/23/17 03/23/17 03/23/17 05:42 11:33 11:33 Creatine Kinase 36 CK-MB (CK-2) 1.50 1.49 Troponin I < 0.012 < 0.012 Impressions: Abdomen/Pelvis CT 03/23/17 00:00 IMPRESSION: No acute findings. Findings in the bladder seen 03/09/2017 are no longer present. Bladder ultrasound could be useful for followup. Findings discussed with Dr. Brisoce Assessment & Plan - Diagnosis (1) Sepsis Qualifiers: Sepsis type: sepsis due to unspecified organism Qualified Code(s): A41.9 - Sepsis, unspecified organism Is this a current diagnosis for this admission?: YesPlan: Secondary to urinary tract infection. Patient had recurrence of fever after transition to oral antibiotic yesterday. I will start patient on IV cefepime and complete 10 day empiric course. (2) UTI (urinary tract infection) Qualifiers: Urinary tract infection type: acute cystitis Hematuria presence: without hematuria Qualified Code(s): N30.00 - Acute cystitis without hematuria Is this a current diagnosis for this admission?: YesPlan: Patient recently completed 10 days of Cipro and has recurrence of urinary tract infection. Urine culture with mixed jazmine, however this was a clean-catch specimen and not a catheterized urine. I will start patient on IV cefepime and complete 10 day empiric course. I am concerned that patient may have drug-resistant Pseudomonas. She grew out Pseudomonas on urine culture from 03/09/2017 that was sensitive to Cipro at that time. She completed a course of Cipro and had recurrent symptoms. Pseudomonas has been known to develop in situ resistance to quinolones. Place PICC line for prolonged course of IV antibiotic. corporate planner to arrange home infusion. Repeat CT scan showed resolution of prior bladder abnormality. Previous abnormality may have represented blood in the bladder secondary to urinary tract infection. Patient will need to follow-up with Dr. George of urology after discharge. (3) Hyponatremia Is this a current diagnosis for this admission?: YesPlan: Likely secondary to poor oral intake recently from infection as well as Lasix administration. Continue to hold Lasix. Sodium improving. (4) Diabetes Qualifiers: Diabetes mellitus type: type 2 Is this a current diagnosis for this admission?: YesPlan: Continue metformin. Well controlled. (5) Hypertension Is this a current diagnosis for this admission?: YesPlan: Hold metoprolol for now secondary to low blood pressure. (6) Weakness Is this a current diagnosis for this admission?: YesPlan: Secondary to urinary tract infection and hyponatremia. Improving. Physical therapy to evaluate. Patient resides at home alone and has steps in her house. (7) Cholelithiasis Is this a current diagnosis for this admission?: YesPlan: Currently no evidence of acute cholecystitis. - Time Time Spent with patient: 35 or more minutes
[2017-03-25 22:00] LABS: APPEARANCE,URINE SLIGHTLY-CLOUDY; BILIRUBIN,URINE NEGATIVE (NEGATIVE); GLUCOSE, URINE NEGATIVE (NEGATIVE); KETONES,URINE NEGATIVE (NEGATIVE); LEUKOCYTE ESTERASE,URINE LARGE (NEGATIVE); NITRITE,URINE NEGATIVE (NEGATIVE); PROTEIN,URINE NEGATIVE (NEGATIVE); URINE SPECIFIC GRAVITY 1.006; UROBILINOGEN,URINE NEGATIVE mg/dL (<2.0)
[2017-03-25] MEDS: NORMAL SALINE 10 ML SDV (SCHEDULED) IV SCH (22:03)
[2017-03-25] MEDS: CEFEPIME 1 GM/D5W RTU 50 ML IV SCH (22:03)
[2017-03-25] MEDS: SIMVASTATIN 10 MG TABLET PO SCH (22:03)
[2017-03-25] MEDS: ALPRAZOLAM 0.25 MG TABLET PO PRN (22:14)
[2017-03-26] MEDS: HEPARIN SOD (PORCINE) 5,000 UNIT/ML 1 ML SYRINGE SUBCUT SCH ×3 (06:03→22:30)
[2017-03-26 06:37] LABS: ABSOLUTE EOSINOPHILS # (AUTO) 0.2 10^3/uL (0.0-0.6); ABSOLUTE LYMPHOCYTES (AUTO) 0.9 10^3/uL (0.5-4.7); ABSOLUTE MONOCYTES (AUTO) 0.4 10^3/uL (0.1-1.4); ABSOLUTE NEUT (AUTO) 8.2 10^3/uL (1.7-8.2); BASOPHILS % (AUTO) 0.2 % (0-2); EOSINOPHILS % (AUTO) 2.5 % (0-6); HEMATOCRIT 33.2 % (36.0-47.0); HGB HCT DIFFERENCE -0.2; LYMPHOCYTES % (AUTO) 8.8 % (13-45); MEAN CORPUSCULAR HEMOGLOBIN 27.4 pg (27.0-33.4); MEAN CORPUSCULAR VOLUME 83 fl (80-97); MONOCYTES % (AUTO) 4.4 % (3-13); RED CELL DISTRIBUTION WIDTH 15.8 % (11.5-14.0); SEGMENTED NEUTROPHILS % (AUTO) 84.1 % (42-78); WHITE BLOOD COUNT 9.7 10^3/uL (4.0-10.5)
[2017-03-26 06:54] LABS: ANION GAP 9 (5-19); BLOOD UREA NITROGEN 11 mg/dL (7-20); CALCIUM 8.9 mg/dL (8.4-10.2); CARBON DIOXIDE 19 mmol/L (22-30); CHLORIDE 105 mmol/L (98-107); CREATININE RESULT 0.86 mg/dL (0.52-1.25); GLUCOSE 81 mg/dL (75-110); POTASSIUM 4.4 mmol/L (3.6-5.0); SODIUM 132.6 mmol/L (137-145)
[2017-03-26] MEDS: CEFEPIME 1 GM/D5W RTU 50 ML IV SCH ×2 (09:39→22:29)
[2017-03-26] MEDS: CHOLECALCIFEROL (D3) 1,000 UNIT TABLET PO SCH (09:42)
[2017-03-26] MEDS: ALLOPURINOL 100 MG TABLET PO SCH (09:42)
[2017-03-26] MEDS: METFORMIN HCL 500 MG TABLET PO SCH ×2 (09:42→17:17)
[2017-03-26] MEDS: NORMAL SALINE 10 ML SDV (SCHEDULED) IV SCH ×2 (09:43→22:30)
--- NOTE | 2017-03-26 14:14 | PDOC PROGRESS REPORT ---
Subjective Progress Note for:: 03/26/17 Subjective:: Patient has been afebrile for the past 24 hours. She has been ambulating without assistance per physical therapy and they have discharged her from physical therapy. Patient denies headache, new focal weakness, chest pain, shortness of breath, abdominal pain, nausea, vomiting, diarrhea, constipation. Physical Exam Vital Signs: Temp Pulse Resp BP Pulse Ox 98.2 F 88 13 107/61 98 03/26/17 11:41 03/26/17 11:41 03/26/17 11:41 03/26/17 11:41 03/26/17 11:41 Intake & Output 03/25/17 03/26/17 03/27/17 06:59 06:59 06:59 Intake Total 2270 470 Output Total 500 400 Balance 1770 70 Weight 50.5 kg 53.6 kg GENERAL: No acute distress HEENT: Conjunctiva clear, nonicteric, moist mucous membranes, no JVD, midline trachea RESPIRATORY: Clear to auscultation bilaterally, no wheezes, no rhonchi CARDIAC: Regular rate and rhythm, no murmurs/gallops/rubs ABDOMEN: Soft, nondistended, nontender, positive bowel sounds, no rebound, no guarding EXTREMETIES: No edema, cyanosis, clubbing NEUROLOGIC: Alert, oriented to person/place/time, CN's grossly intact, no focal deficits SKIN: No rash, wounds PSYCH: Normal mood, normal affect Results Laboratory Results: 03/26/17 06:05 03/26/17 06:05 03/25/17 03/26/17 03/26/17 21:35 06:05 06:05 WBC 9.7 RBC 4.00 Hgb 11.0 L Hct 33.2 L MCV 83 MCH 27.4 MCHC 33.0 RDW 15.8 H Plt Count 302 Seg Neutrophils % 84.1 H Lymphocytes % 8.8 L Monocytes % 4.4 Eosinophils % 2.5 Basophils % 0.2 Absolute Neutrophils 8.2 Absolute Lymphocytes 0.9 Absolute Monocytes 0.4 Absolute Eosinophils 0.2 Absolute Basophils 0.0 Sodium 132.6 L Potassium 4.4 Chloride 105 Carbon Dioxide 19 L Anion Gap 9 BUN 11 Creatinine 0.86 Est GFR ( Amer) > 60 Est GFR (Non-Af Amer) > 60 Glucose 81 Calcium 8.9 TSH Urine Color YELLOW Urine Appearance SLIGHTLY-CLOUDY Urine pH 7.0 Ur Specific [place] 1.006 Urine Protein NEGATIVE Urine Glucose (UA) NEGATIVE Urine Ketones NEGATIVE Urine Blood SMALL H Urine Nitrite NEGATIVE Ur Leukocyte Esterase LARGE H Urine WBC (Auto) 111 Urine RBC (Auto) 2 03/26/17 06:05 WBC RBC Hgb Hct MCV MCH MCHC RDW Plt Count Seg Neutrophils % Lymphocytes % Monocytes % Eosinophils % Basophils % Absolute Neutrophils Absolute Lymphocytes Absolute Monocytes Absolute Eosinophils Absolute Basophils Sodium Potassium Chloride Carbon Dioxide Anion Gap BUN Creatinine Est GFR ( Amer) Est GFR (Non-Af Amer) Glucose Calcium TSH 2.73 Urine Color Urine Appearance Urine pH Ur Specific [place] Urine Protein Urine Glucose (UA) Urine Ketones Urine Blood Urine Nitrite Ur Leukocyte Esterase Urine WBC (Auto) Urine RBC (Auto) 03/22/17 03/22/17 03/23/17 23:30 23:30 05:42 Creatine Kinase 61 43 CK-MB (CK-2) 1.39 Troponin I < 0.012 03/23/17 03/23/17 03/23/17 05:42 11:33 11:33 Creatine Kinase 36 CK-MB (CK-2) 1.50 1.49 Troponin I < 0.012 < 0.012 Impressions: Abdomen/Pelvis CT 03/23/17 00:00 IMPRESSION: No acute findings. Findings in the bladder seen 03/09/2017 are no longer present. Bladder ultrasound could be useful for followup. Findings discussed with Dr. Briscoe Guidance Fluoroscopy 03/25/17 00:00 IMPRESSION: SUCCESSFUL PLACEMENT OF A 5 FR DUAL LUMEN 30 CM PICC IN THE right basilic VEIN. Interventional Vascular Procedure 03/25/17 00:00 IMPRESSION: SUCCESSFUL PLACEMENT OF A 5 FR DUAL LUMEN 30 CM PICC IN THE right basilic VEIN. PICC Line Insertion 03/25/17 00:00 IMPRESSION: SUCCESSFUL PLACEMENT OF A 5 FR DUAL LUMEN 30 CM PICC IN THE right basilic VEIN. Assessment & Plan - Diagnosis (1) Sepsis Qualifiers: Sepsis type: sepsis due to unspecified organism Qualified Code(s): A41.9 - Sepsis, unspecified organism Is this a current diagnosis for this admission?: YesPlan: Secondary to urinary tract infection. Patient had recurrence of fever after transition to oral antibiotic yesterday. Patient will need to remain on empiric IV cefepime until 04/04/2017 (2) UTI (urinary tract infection) Qualifiers: Urinary tract infection type: acute cystitis Hematuria presence: without hematuria Qualified Code(s): N30.00 - Acute cystitis without hematuria Is this a current diagnosis for this admission?: YesPlan: Patient recently completed 10 days of Cipro and has recurrence of urinary tract infection. Urine culture with mixed jazmine, however this was a clean-catch specimen and not a catheterized urine. Continue IV cefepime and complete 10 day empiric course on 04/04/2017. I am concerned that patient may have drug-resistant Pseudomonas. She grew out Pseudomonas on urine culture from 03/09/2017 that was sensitive to Cipro at that time. She completed a course of Cipro and had recurrent symptoms. Pseudomonas has been known to develop in situ resistance to quinolones. Place PICC line for prolonged course of IV antibiotic. systems planner to arrange home infusion. Repeat CT scan showed resolution of prior bladder abnormality. Previous abnormality may have represented blood in the bladder secondary to urinary tract infection. Patient will need to follow-up with Dr. George of urology after discharge. (3) Hyponatremia Is this a current diagnosis for this admission?: YesPlan: Likely secondary to poor oral intake recently from infection as well as Lasix administration. Continue to hold Lasix. Sodium improved. TSH normal. (4) Diabetes Qualifiers: Diabetes mellitus type: type 2 Is this a current diagnosis for this admission?: YesPlan: Continue metformin. Well controlled. (5) Hypertension Is this a current diagnosis for this admission?: YesPlan: Hold metoprolol for now secondary to low blood pressure. (6) Weakness Is this a current diagnosis for this admission?: YesPlan: Secondary to urinary tract infection and hyponatremia. Improving. Physical therapy discharge patient as she was able to ambulate without assistance. Patient resides at home alone and has steps in her house. (7) Cholelithiasis Is this a current diagnosis for this admission?: YesPlan: Currently no evidence of acute cholecystitis. Consider outpatient surgical opinion after discharge. - Time Time Spent with patient: 25-34 minutes
[2017-03-26] MEDS: SIMVASTATIN 10 MG TABLET PO SCH (22:29)
[2017-03-26] MEDS: ALPRAZOLAM 0.25 MG TABLET PO PRN (22:30)
[2017-03-27] MEDS: HEPARIN SOD (PORCINE) 5,000 UNIT/ML 1 ML SYRINGE SUBCUT SCH ×3 (05:35→21:20)
[2017-03-27] MEDS: ALLOPURINOL 100 MG TABLET PO SCH (10:09)
[2017-03-27] MEDS: CEFEPIME 1 GM/D5W RTU 50 ML IV SCH ×2 (10:10→21:20)
[2017-03-27] MEDS: CHOLECALCIFEROL (D3) 1,000 UNIT TABLET PO SCH (10:11)
[2017-03-27] MEDS: METFORMIN HCL 500 MG TABLET PO SCH ×2 (10:11→18:14)
[2017-03-27] MEDS: NORMAL SALINE 10 ML SDV (SCHEDULED) IV SCH ×2 (10:12→21:20)
--- NOTE | 2017-03-27 15:07 | PDOC PROGRESS REPORT ---
Subjective Progress Note for:: 03/27/17 Subjective:: Patient is gradually feeling better. She has been ambulating with a rolling walker today. She still feels generally weaker than normal. Patient denies fever, chills, headache, new focal weakness, chest pain, shortness of breath, abdominal pain, nausea, vomiting, diarrhea, constipation. Physical Exam Vital Signs: Temp Pulse Resp BP Pulse Ox 97.3 F 81 20 109/56 L 95 03/27/17 11:00 03/27/17 11:00 03/27/17 11:00 03/27/17 11:00 03/27/17 11:00 Intake & Output 03/26/17 03/27/17 03/28/17 06:59 06:59 06:59 Intake Total 470 560 Output Total 400 150 Balance 70 410 Weight 53.6 kg 53.6 kg GENERAL: No acute distress HEENT: Conjunctiva clear, nonicteric, moist mucous membranes, no JVD, midline trachea RESPIRATORY: Clear to auscultation bilaterally, no wheezes, no rhonchi CARDIAC: Regular rate and rhythm, no murmurs/gallops/rubs ABDOMEN: Soft, nondistended, nontender, positive bowel sounds, no rebound, no guarding EXTREMETIES: No edema, cyanosis, clubbing NEUROLOGIC: Alert, oriented to person/place/time, CN's grossly intact, no focal deficits SKIN: No rash, wounds PSYCH: Normal mood, normal affect Results Laboratory Results: 03/26/17 06:05 03/26/17 06:05 03/25/17 21:35 Clean Catch Midstream Urine Culture - Final NO GROWTH 2 DAYS 03/22/17 03/22/17 03/23/17 23:30 23:30 05:42 Creatine Kinase 61 43 CK-MB (CK-2) 1.39 Troponin I < 0.012 03/23/17 03/23/17 03/23/17 05:42 11:33 11:33 Creatine Kinase 36 CK-MB (CK-2) 1.50 1.49 Troponin I < 0.012 < 0.012 Impressions: Abdomen/Pelvis CT 03/23/17 00:00 IMPRESSION: No acute findings. Findings in the bladder seen 03/09/2017 are no longer present. Bladder ultrasound could be useful for followup. Findings discussed with Dr. Briscoe Guidance Fluoroscopy 03/25/17 00:00 IMPRESSION: SUCCESSFUL PLACEMENT OF A 5 FR DUAL LUMEN 30 CM PICC IN THE right basilic VEIN. Interventional Vascular Procedure 03/25/17 00:00 IMPRESSION: SUCCESSFUL PLACEMENT OF A 5 FR DUAL LUMEN 30 CM PICC IN THE right basilic VEIN. PICC Line Insertion 03/25/17 00:00 IMPRESSION: SUCCESSFUL PLACEMENT OF A 5 FR DUAL LUMEN 30 CM PICC IN THE right basilic VEIN. Assessment & Plan - Diagnosis (1) Sepsis Qualifiers: Sepsis type: sepsis due to unspecified organism Qualified Code(s): A41.9 - Sepsis, unspecified organism Is this a current diagnosis for this admission?: YesPlan: Secondary to urinary tract infection. Patient had recurrence of fever after transition to oral antibiotic yesterday. Patient will need to remain on empiric IV cefepime until 04/04/2017 (2) UTI (urinary tract infection) Qualifiers: Urinary tract infection type: acute cystitis Hematuria presence: without hematuria Qualified Code(s): N30.00 - Acute cystitis without hematuria Is this a current diagnosis for this admission?: YesPlan: Patient recently completed 10 days of Cipro and has recurrence of urinary tract infection. Urine culture with mixed jazmine, however this was a clean-catch specimen and not a catheterized urine. Continue IV cefepime and complete 10 day empiric course on 04/04/2017. I am concerned that patient may have drug-resistant Pseudomonas. She grew out Pseudomonas on urine culture from 03/09/2017 that was sensitive to Cipro at that time. She completed a course of Cipro and had recurrent symptoms. Pseudomonas has been known to develop in situ resistance to quinolones. Placed PICC line for prolonged course of IV antibiotic. cyber policy and strategy planner to arrange home infusion versus residential facility depending on patient's condition and family's preference. Repeat CT scan showed resolution of prior bladder abnormality. Previous abnormality may have represented blood in the bladder secondary to urinary tract infection. Patient will need to follow-up with Dr. George of urology after discharge. (3) Hyponatremia Is this a current diagnosis for this admission?: YesPlan: Likely secondary to poor oral intake recently from infection as well as Lasix administration. Continue to hold Lasix. Sodium improved. TSH normal. (4) Diabetes Qualifiers: Diabetes mellitus type: type 2 Is this a current diagnosis for this admission?: YesPlan: Continue metformin. Well controlled. (5) Hypertension Is this a current diagnosis for this admission?: YesPlan: Hold metoprolol for now secondary to low blood pressure. (6) Weakness Is this a current diagnosis for this admission?: YesPlan: Secondary to urinary tract infection and hyponatremia. Improving. Physical therapy discharge patient as she was able to ambulate without assistance. Patient resides at home alone and has steps in her house. (7) Cholelithiasis Is this a current diagnosis for this admission?: YesPlan: Currently no evidence of acute cholecystitis. Consider outpatient surgical opinion after discharge. - Time Time Spent with patient: 25-34 minutes
[2017-03-27] MEDS: SIMVASTATIN 10 MG TABLET PO SCH (21:20)
[2017-03-28] MEDS: ALPRAZOLAM 0.25 MG TABLET PO PRN (02:47)
[2017-03-28] MEDS: HEPARIN SOD (PORCINE) 5,000 UNIT/ML 1 ML SYRINGE SUBCUT SCH ×3 (05:36→22:51)
[2017-03-28 06:19] LABS: ABSOLUTE EOSINOPHILS # (AUTO) 0.2 10^3/uL (0.0-0.6); ABSOLUTE LYMPHOCYTES (AUTO) 1.2 10^3/uL (0.5-4.7); ABSOLUTE MONOCYTES (AUTO) 0.4 10^3/uL (0.1-1.4); ABSOLUTE NEUT (AUTO) 6.2 10^3/uL (1.7-8.2); BASOPHILS % (AUTO) 0.4 % (0-2); HEMATOCRIT 34.3 % (36.0-47.0); HEMOGLOBIN 11.1 g/dL (12.0-15.5); LYMPHOCYTES % (AUTO) 14.7 % (13-45); MEAN CORPUSCULAR HEMOGLOBIN 27.1 pg (27.0-33.4); MEAN CORPUSCULAR HGB CONC 32.3 g/dL (32.0-36.0); MEAN CORPUSCULAR VOLUME 84 fl (80-97); MONOCYTES % (AUTO) 5.5 % (3-13); RED CELL DISTRIBUTION WIDTH 16.1 % (11.5-14.0); SEGMENTED NEUTROPHILS % (AUTO) 76.4 % (42-78); WHITE BLOOD COUNT 8.2 10^3/uL (4.0-10.5)
[2017-03-28 06:30] LABS: ANION GAP 8 (5-19); BLOOD UREA NITROGEN 11 mg/dL (7-20); CALCIUM 10.2 mg/dL (8.4-10.2); CARBON DIOXIDE 22 mmol/L (22-30); CHLORIDE 103 mmol/L (98-107); CREATININE RESULT 0.87 mg/dL (0.52-1.25); GLUCOSE 80 mg/dL (75-110); POTASSIUM 4.4 mmol/L (3.6-5.0)
[2017-03-28] MEDS: ALLOPURINOL 100 MG TABLET PO SCH (10:36)
[2017-03-28] MEDS: METFORMIN HCL 500 MG TABLET PO SCH ×2 (10:36→17:54)
[2017-03-28] MEDS: CEFEPIME 1 GM/D5W RTU 50 ML IV SCH ×2 (10:36→22:51)
[2017-03-28] MEDS: CHOLECALCIFEROL (D3) 1,000 UNIT TABLET PO SCH (10:37)
[2017-03-28] MEDS: NORMAL SALINE 10 ML SDV (SCHEDULED) IV SCH ×2 (10:37→22:51)
--- NOTE | 2017-03-28 14:53 | PDOC PROGRESS REPORT ---
Subjective Progress Note for:: 03/28/17 Subjective:: Patient has been ambulating with rolling walker but has a very unsteady gait. Her son is very concerned about her returning home alone and is requesting that she go to a rehab facility after discharge for ambulatory dysfunction and to complete course of IV antibiotics. Patient's son and [id number] live in the area for some reason did not seem to be able to provide 24/7 supervision required for the brief recovery post-hospitalization. Patient denies fever, chills, headache, new focal weakness, chest pain, shortness of breath, abdominal pain, nausea, vomiting, diarrhea, constipation. Physical Exam Vital Signs: Temp Pulse Resp BP Pulse Ox 98.1 F 90 20 104/60 96 03/28/17 11:40 03/28/17 11:40 03/28/17 11:40 03/28/17 11:40 03/28/17 11:40 Intake & Output 03/27/17 03/28/17 03/29/17 06:59 06:59 06:59 Intake Total 560 1012 Output Total 150 300 Balance 410 712 Weight 53.6 kg 53.9 kg GENERAL: No acute distress HEENT: Conjunctiva clear, nonicteric, moist mucous membranes, no JVD, midline trachea RESPIRATORY: Clear to auscultation bilaterally, no wheezes, no rhonchi CARDIAC: Regular rate and rhythm, no murmurs/gallops/rubs ABDOMEN: Soft, nondistended, nontender, positive bowel sounds, no rebound, no guarding EXTREMETIES: No edema, cyanosis, clubbing NEUROLOGIC: Alert, oriented to person/place/time, CN's grossly intact, no focal deficits SKIN: No rash, wounds PSYCH: Normal mood, normal affect Results Laboratory Results: 03/28/17 05:30 03/28/17 05:30 03/28/17 03/28/17 05:30 05:30 WBC 8.2 RBC 4.10 Hgb 11.1 L Hct 34.3 L MCV 84 MCH 27.1 MCHC 32.3 RDW 16.1 H Plt Count 305 Seg Neutrophils % 76.4 Lymphocytes % 14.7 Monocytes % 5.5 Eosinophils % 3.0 Basophils % 0.4 Absolute Neutrophils 6.2 Absolute Lymphocytes 1.2 Absolute Monocytes 0.4 Absolute Eosinophils 0.2 Absolute Basophils 0.0 Sodium 133.0 L Potassium 4.4 Chloride 103 Carbon Dioxide 22 Anion Gap 8 BUN 11 Creatinine 0.87 Est GFR ( Amer) > 60 Est GFR (Non-Af Amer) > 60 Glucose 80 Calcium 10.2 03/23/17 01:05 Blood Blood Culture - Final NO GROWTH IN 5 DAYS 03/22/17 23:30 Blood Blood Culture - Final NO GROWTH IN 5 DAYS 03/25/17 21:35 Clean Catch Midstream Urine Culture - Final NO GROWTH 2 DAYS 03/22/17 03/22/17 03/23/17 23:30 23:30 05:42 Creatine Kinase 61 43 CK-MB (CK-2) 1.39 Troponin I < 0.012 03/23/17 03/23/17 03/23/17 05:42 11:33 11:33 Creatine Kinase 36 CK-MB (CK-2) 1.50 1.49 Troponin I < 0.012 < 0.012 Impressions: Abdomen/Pelvis CT 03/23/17 00:00 IMPRESSION: No acute findings. Findings in the bladder seen 03/09/2017 are no longer present. Bladder ultrasound could be useful for followup. Findings discussed with Dr. Briscoe Guidance Fluoroscopy 03/25/17 00:00 IMPRESSION: SUCCESSFUL PLACEMENT OF A 5 FR DUAL LUMEN 30 CM PICC IN THE right basilic VEIN. Interventional Vascular Procedure 03/25/17 00:00 IMPRESSION: SUCCESSFUL PLACEMENT OF A 5 FR DUAL LUMEN 30 CM PICC IN THE right basilic VEIN. PICC Line Insertion 03/25/17 00:00 IMPRESSION: SUCCESSFUL PLACEMENT OF A 5 FR DUAL LUMEN 30 CM PICC IN THE right basilic VEIN. Assessment & Plan - Diagnosis (1) Sepsis Qualifiers: Sepsis type: sepsis due to unspecified organism Qualified Code(s): A41.9 - Sepsis, unspecified organism Is this a current diagnosis for this admission?: YesPlan: Secondary to urinary tract infection. Patient had recurrence of fever after transition to oral antibiotic yesterday. Patient will need to remain on empiric IV cefepime until 04/04/2017 (2) UTI (urinary tract infection) Qualifiers: Urinary tract infection type: acute cystitis Hematuria presence: without hematuria Qualified Code(s): N30.00 - Acute cystitis without hematuria Is this a current diagnosis for this admission?: YesPlan: Patient recently completed 10 days of Cipro and has recurrence of urinary tract infection. Urine culture with mixed jazmine, however this was a clean-catch specimen and not a catheterized urine. Continue IV cefepime and complete 10 day empiric course on 04/04/2017. I am concerned that patient may have drug-resistant Pseudomonas. She grew out Pseudomonas on urine culture from 03/09/2017 that was sensitive to Cipro at that time. She completed a course of Cipro and had recurrent symptoms. Pseudomonas has been known to develop in situ resistance to quinolones. Placed PICC line for prolonged course of IV antibiotic. space planner to arrange home infusion versus shelter facility depending on patient's condition and family's preference. Repeat CT scan showed resolution of prior bladder abnormality. Previous abnormality may have represented blood in the bladder secondary to urinary tract infection. Patient will need to follow-up with Dr. George of urology after discharge. (3) Hyponatremia Is this a current diagnosis for this admission?: YesPlan: Likely secondary to poor oral intake recently from infection as well as Lasix administration. Continue to hold Lasix. Sodium improved. TSH normal. (4) Diabetes Qualifiers: Diabetes mellitus type: type 2 Is this a current diagnosis for this admission?: YesPlan: Continue metformin. Well controlled. (5) Hypertension Is this a current diagnosis for this admission?: YesPlan: Hold metoprolol for now secondary to low blood pressure. (6) Cholelithiasis Is this a current diagnosis for this admission?: YesPlan: Patient has been made aware that she has this condition prior to this admission. Currently no evidence of acute cholecystitis. Consider outpatient surgical opinion after discharge if she should become symptomatic. (7) Ambulatory dysfunction Is this a current diagnosis for this admission?: YesPlan: Patient continues to have unsteady gait while ambulating with rolling walker. Family is requesting that she go to rehab posthospitalization prior to returning home alone. - Time Time Spent with patient: 25-34 minutes Anticipated discharge: Acute Rehab
[2017-03-28] MEDS: SIMVASTATIN 10 MG TABLET PO SCH (22:50)
[2017-03-29] MEDS: HEPARIN SOD (PORCINE) 5,000 UNIT/ML 1 ML SYRINGE SUBCUT SCH ×3 (06:25→22:19)
[2017-03-29] MEDS: CEFEPIME 1 GM/D5W RTU 50 ML IV SCH ×2 (10:47→22:19)
[2017-03-29] MEDS: METFORMIN HCL 500 MG TABLET PO SCH ×2 (10:47→17:46)
[2017-03-29] MEDS: ALLOPURINOL 100 MG TABLET PO SCH (10:47)
[2017-03-29] MEDS: CHOLECALCIFEROL (D3) 1,000 UNIT TABLET PO SCH (10:47)
[2017-03-29] MEDS: NORMAL SALINE 10 ML SDV (SCHEDULED) IV SCH ×2 (10:48→22:19)
--- NOTE | 2017-03-29 13:55 | PDOC PROGRESS REPORT ---
Subjective Progress Note for:: 03/29/17 Subjective:: No new issues reported. Awaiting rehab placement. Physical Exam Vital Signs: Temp Pulse Resp BP Pulse Ox 98.1 F 94 14 127/79 H 99 03/29/17 12:00 03/29/17 12:00 03/29/17 12:00 03/29/17 12:00 03/29/17 12:00 Intake & Output 03/28/17 03/29/17 03/30/17 06:59 06:59 06:59 Intake Total 1012 1070 Output Total 300 1095 Balance 712 -25 Weight 53.9 kg 47.7 kg GENERAL: No acute distress HEENT: Conjunctiva clear, nonicteric, moist mucous membranes, no JVD, midline trachea RESPIRATORY: Clear to auscultation bilaterally, no wheezes, no rhonchi CARDIAC: Regular rate and rhythm, no murmurs/gallops/rubs ABDOMEN: Soft, nondistended, nontender, positive bowel sounds, no rebound, no guarding EXTREMETIES: No edema, cyanosis, clubbing. PICC line in right arm NEUROLOGIC: Alert, oriented to person/place/time, CN's grossly intact, no focal deficits SKIN: No rash, wounds PSYCH: Normal mood, normal affect Results Laboratory Results: 03/28/17 05:30 03/28/17 05:30 03/22/17 03/22/17 03/23/17 23:30 23:30 05:42 Creatine Kinase 61 43 CK-MB (CK-2) 1.39 Troponin I < 0.012 03/23/17 03/23/17 03/23/17 05:42 11:33 11:33 Creatine Kinase 36 CK-MB (CK-2) 1.50 1.49 Troponin I < 0.012 < 0.012 Impressions: Abdomen/Pelvis CT 03/23/17 00:00 IMPRESSION: No acute findings. Findings in the bladder seen 03/09/2017 are no longer present. Bladder ultrasound could be useful for followup. Findings discussed with Dr. Briscoe Guidance Fluoroscopy 03/25/17 00:00 IMPRESSION: SUCCESSFUL PLACEMENT OF A 5 FR DUAL LUMEN 30 CM PICC IN THE right basilic VEIN. Interventional Vascular Procedure 03/25/17 00:00 IMPRESSION: SUCCESSFUL PLACEMENT OF A 5 FR DUAL LUMEN 30 CM PICC IN THE right basilic VEIN. PICC Line Insertion 03/25/17 00:00 IMPRESSION: SUCCESSFUL PLACEMENT OF A 5 FR DUAL LUMEN 30 CM PICC IN THE right basilic VEIN. Assessment & Plan - Diagnosis (1) Sepsis Qualifiers: Sepsis type: sepsis due to unspecified organism Qualified Code(s): A41.9 - Sepsis, unspecified organism Is this a current diagnosis for this admission?: YesPlan: Secondary to urinary tract infection. Patient had recurrence of fever after transition to oral antibiotic yesterday. Patient will need to remain on empiric IV cefepime until 04/04/2017 (2) UTI (urinary tract infection) Qualifiers: Urinary tract infection type: acute cystitis Hematuria presence: without hematuria Qualified Code(s): N30.00 - Acute cystitis without hematuria Is this a current diagnosis for this admission?: YesPlan: Patient recently completed 10 days of Cipro and has recurrence of urinary tract infection. Urine culture with mixed jazmine, however this was a clean-catch specimen and not a catheterized urine. Continue IV cefepime and complete 10 day empiric course on 04/04/2017. I am concerned that patient may have drug-resistant Pseudomonas. She grew out Pseudomonas on urine culture from 03/09/2017 that was sensitive to Cipro at that time. She completed a course of Cipro and had recurrent symptoms. Pseudomonas has been known to develop in situ resistance to quinolones. Placed PICC line for prolonged course of IV antibiotic. assortment planner to arrange home infusion versus correction facility depending on patient's condition and family's preference. Repeat CT scan showed resolution of prior bladder abnormality. Previous abnormality may have represented blood in the bladder secondary to urinary tract infection. Patient will need to follow-up with Dr. George of urology after discharge. (3) Hyponatremia Is this a current diagnosis for this admission?: YesPlan: Likely secondary to poor oral intake recently from infection as well as Lasix administration. Continue to hold Lasix. Sodium improved. TSH normal. (4) Diabetes Qualifiers: Diabetes mellitus type: type 2 Is this a current diagnosis for this admission?: YesPlan: Continue metformin. Well controlled. (5) Hypertension Is this a current diagnosis for this admission?: YesPlan: Hold metoprolol for now secondary to low blood pressure. (6) Cholelithiasis Is this a current diagnosis for this admission?: YesPlan: Patient has been made aware that she has this condition prior to this admission. Currently no evidence of acute cholecystitis. Consider outpatient surgical opinion after discharge if she should become symptomatic. (7) Ambulatory dysfunction Is this a current diagnosis for this admission?: YesPlan: Patient continues to have unsteady gait while ambulating with rolling walker. assortment planner has referred patient to [facility] for rehab prior to returning home alone. - Time Time Spent with patient: 15-24 minutes
[2017-03-29] MEDS: SIMVASTATIN 10 MG TABLET PO SCH (22:19)
[2017-03-30] MEDS: HEPARIN SOD (PORCINE) 5,000 UNIT/ML 1 ML SYRINGE SUBCUT SCH ×2 (05:39→13:54)
[2017-03-30] MEDS: ALLOPURINOL 100 MG TABLET PO SCH (11:06)
[2017-03-30] MEDS: METFORMIN HCL 500 MG TABLET PO SCH (11:06)
[2017-03-30] MEDS: CHOLECALCIFEROL (D3) 1,000 UNIT TABLET PO SCH (11:08)
[2017-03-30] MEDS: NORMAL SALINE 10 ML SDV (SCHEDULED) IV SCH (11:08)
[2017-03-30] MEDS: CEFEPIME 1 GM/D5W RTU 50 ML IV SCH (11:09)
[2017-03-30] MEDS ORDERED: ALPRAZOLAM 0.25 MG TABLET PO PRN (13:54)
[2017-03-30] MEDS ORDERED: ALPRAZOLAM 0.25 MG TABLET PO ONE (13:54)
--- NOTE | 2017-03-30 14:01 | PDOC DISCHARGE SUMMARY ---
General - Admit/Disc Date/PCP Admission Date/Primary Care Provider: 03/22/17 23:20 GLORIA SHEPPARD MD Discharge Date: 03/30/17 - Discharge Diagnosis (1) Sepsis Is this a current diagnosis for this admission?: Yes (2) Ambulatory dysfunction Is this a current diagnosis for this admission?: Yes (3) Cholelithiasis Is this a current diagnosis for this admission?: Yes (4) Diabetes Is this a current diagnosis for this admission?: Yes (5) Hypertension Is this a current diagnosis for this admission?: Yes (6) Hyponatremia Is this a current diagnosis for this admission?: Yes (7) UTI (urinary tract infection) Is this a current diagnosis for this admission?: Yes - Additional Information Resuscitation Status: Full Code Discharge Diet: Cardiac Discharge Activity: Activity As Tolerated Home Medications: Allopurinol [Zyloprim 100 mg Tablet] 200 mg PO DAILY 03/23/17 Cholecalciferol (Vitamin D3) [Vitamin D3] 2,000 mg PO DAILY 03/23/17 Krill Oil 500 mg PO DAILY 03/23/17 Metoprolol Succinate [Toprol Xl 50 mg Tab.sr] 50 mg PO DAILY 03/23/17 Ubidecarenone [Co Q-10] 100 mg PO DAILY 03/23/17 Vitamin B Complex [B-100 Complex] 1 tab PO DAILY 03/23/17 Alprazolam [Xanax 0.25 mg Tablet] 0.25 mg PO BIDP PRN #10 tablet 03/30/17 Cefepime 1 gm/D5w RTU [Maxipime RTU 1 gm/D5w 50 ml Premix Bag] 1 gm IV Q12 #10 rtupb 03/30/17 Magnesium Hydroxide [Milk of Magnesia 30 ml Udcup] 30 ml PO HSP PRN udc Mineral Oil [Fleet Mineral Oil Enema 133 ml] 133 ml DC BIDP PRN enema 03/30/17 History of Present Illness History of Present Illness: Please see H+P for full HPI Hospital Course Hospital Course: Patient presented with hypotension and altered mental status. Patient had previously been on Cipro for ten days as an outpatient for pseudomonal UTI and has recurrence of urinary tract infection. Urine culture with mixed jazmine, however this was a clean-catch specimen and not a catheterized urine. Patient was empirically IV cefepime and complete 10 day empiric course on 6/11/ 2017. I am concerned that patient may have drug-resistant Pseudomonas. She grew out Pseudomonas on urine culture from 03/09/2017 that was sensitive to Cipro at that time. She completed a course of Cipro and had recurrent symptoms. Pseudomonas has been known to develop in situ resistance to quinolones. Placed PICC line (03/25/17) for prolonged course of IV antibiotic. Repeat CT scan showed resolution of prior bladder abnormality. Previous abnormality may have represented blood in the bladder secondary to urinary tract infection. Patient will need to follow-up with Dr. George of urology after discharge. Patient doing well and metformin stopped due to age, "pre-diabetic" diagnosis and hypoglycemia. Patient is encouraged to eat regular meals and glucerna tid with meals. Physical Exam Vital Signs: Temp Pulse Resp BP Pulse Ox 97.8 F 99 22 H 123/75 96 03/30/17 11:30 03/30/17 11:30 03/30/17 11:30 03/30/17 11:30 03/30/17 11:30 Intake & Output 03/29/17 03/30/17 03/31/17 06:59 06:59 06:59 Intake Total 1070 880 Output Total 1095 1275 Balance -25 -395 Weight 47.7 kg 51.5 kg Exam: GENERAL: A+ox3, No acute distress HEENT: Conjunctiva clear, nonicteric, moist mucous membranes, no JVD, midline trachea RESPIRATORY: Clear to auscultation bilaterally, no wheezes, no rhonchi CARDIAC: Regular rate and rhythm, no murmurs/gallops/rubs ABDOMEN: Soft, nondistended, nontender, positive bowel sounds, no rebound, no guarding EXTREMETIES: No edema, cyanosis, clubbing. PICC line in right arm NEUROLOGIC: Alert, oriented to person/place/time, CN's grossly intact, no focal deficits SKIN: No rash, wounds PSYCH: mildly anxious Results Laboratory Results: 03/28/17 05:30 03/28/17 05:30 03/29/17 19:00 Vitamin B12 > 1000.0 H 03/22/17 03/22/17 03/23/17 23:30 23:30 05:42 Creatine Kinase 61 43 CK-MB (CK-2) 1.39 Troponin I < 0.012 03/23/17 03/23/17 03/23/17 05:42 11:33 11:33 Creatine Kinase 36 CK-MB (CK-2) 1.50 1.49 Troponin I < 0.012 < 0.012 Impressions: Abdomen/Pelvis CT 03/23/17 00:00 IMPRESSION: No acute findings. Findings in the bladder seen 03/09/2017 are no longer present. Bladder ultrasound could be useful for followup. Findings discussed with Dr. Briscoe Guidance Fluoroscopy 03/25/17 00:00 IMPRESSION: SUCCESSFUL PLACEMENT OF A 5 FR DUAL LUMEN 30 CM PICC IN THE right basilic VEIN. Interventional Vascular Procedure 03/25/17 00:00 IMPRESSION: SUCCESSFUL PLACEMENT OF A 5 FR DUAL LUMEN 30 CM PICC IN THE right basilic VEIN. PICC Line Insertion 03/25/17 00:00 IMPRESSION: SUCCESSFUL PLACEMENT OF A 5 FR DUAL LUMEN 30 CM PICC IN THE right basilic VEIN. Qualifiers PATEINT BEING DISCHARGED WITH ANY OF THE FOLLOWING DIAGNOSIS?: No Plan Time Spent: Greater than 30 Minutes
[2017-03-30 15:38] VITALS: BP 115/65
--- NOTE | 2017-04-05 20:08 | PDOC H&P ---
History of Present Illness Admission Date/PCP: 03/22/17 23:20 GLORIA SHEPPARD MD History of Present Illness: Patient is a 86-year-old female presenting with generalized weakness complicated by recent urinary tract infection and debility. Patient has been treated with 4 days of ciprofloxacin for urinary tract infection without improvement. In the emergency room she is found to have a white blood cell count of 17.7 and hyponatremia with sodium of 125 she started on empiric antibiotics and referred to the hospitalist for admission. Past Medical History Cardiac Medical History: Reports: Hyperlipidema, Hypertension Endocrine Medical History: Reports: Diabetes Mellitus Type 2 GI Medical History: Reports: Gastroesophageal Reflux Disease, Ulcerative Colitis Musculoskeltal Medical History: Reports: Arthritis Hematology: Denies: Anemia, Sickle Cell Disease Past Surgical History Past Surgical History: Reports: Hysterectomy Denies: Amputation Social History Smoking Status: Former Smoker Frequency of Alcohol Use: None Hx Recreational Drug Use: No Drugs: None Hx Prescription Drug Abuse: No - Advance Directive Resuscitation Status: Full Code Family History Family History: Hypertension Parental Family History Reviewed: Yes Children Family History Reviewed: Yes Sibling(s) Family History Reviewed.: Yes Medication/Allergy Home Medications: Allopurinol [Zyloprim 100 mg Tablet] 200 mg PO DAILY 03/23/17 Cholecalciferol (Vitamin D3) [Vitamin D3] 2,000 mg PO DAILY 03/23/17 Krill Oil 500 mg PO DAILY 03/23/17 Metoprolol Succinate [Toprol Xl 50 mg Tab.sr] 50 mg PO DAILY 03/23/17 Ubidecarenone [Co Q-10] 100 mg PO DAILY 03/23/17 Vitamin B Complex [B-100 Complex] 1 tab PO DAILY 03/23/17 Alprazolam [Xanax 0.25 mg Tablet] 0.25 mg PO BIDP PRN #10 tablet 03/30/17 Cefepime 1 gm/D5w RTU [Maxipime RTU 1 gm/D5w 50 ml Premix Bag] 1 gm IV Q12 #10 rtupb 03/30/17 Magnesium Hydroxide [Milk of Magnesia 30 ml Udcup] 30 ml PO HSP PRN udc Mineral Oil [Fleet Mineral Oil Enema 133 ml] 133 ml CA BIDP PRN enema 03/30/17 Allergies/Adverse Reactions: Sulfa (Sulfonamide Antibiotics) Allergy (Mild, Verified 03/22/17 19:40) rash Review of Systems Constitutional: ABSENT: chills, fever(s), headache(s), weight gain, weight loss Eyes: ABSENT: visual disturbances Ears: ABSENT: hearing changes Cardiovascular: ABSENT: chest pain, dyspnea on exertion, edema, orthropnea, palpitations Respiratory: ABSENT: cough, hemoptysis Gastrointestinal: ABSENT: abdominal pain, constipation, diarrhea, hematemesis, hematochezia, nausea, vomiting Genitourinary: ABSENT: dysuria, hematuria Musculoskeletal: ABSENT: joint swelling Integumentary: ABSENT: rash, wounds Neurological: ABSENT: abnormal gait, abnormal speech, confusion, dizziness, focal weakness, syncope Psychiatric: ABSENT: anxiety, depression, homidical ideation, suicidal ideation Endocrine: ABSENT: cold intolerance, heat intolerance, polydipsia, polyuria Hematologic/Lymphatic: ABSENT: easy bleeding, easy bruising Physical Exam Vital Signs: Temp Pulse Resp BP Pulse Ox 98.0 F 87 20 115/65 96 03/30/17 15:26 03/30/17 15:26 03/30/17 15:26 03/30/17 15:26 03/30/17 15:26 General appearance: PRESENT: no acute distress, well-developed, well-nourished Head exam: PRESENT: atraumatic, normocephalic Eye exam: PRESENT: conjunctiva pink, EOMI, PERRLA. ABSENT: scleral icterus Ear exam: PRESENT: normal external ear exam Mouth exam: PRESENT: moist, tongue midline Neck exam: ABSENT: carotid bruit, JVD, lymphadenopathy, thyromegaly Respiratory exam: PRESENT: clear to auscultation je. ABSENT: rales, rhonchi, wheezes Cardiovascular exam: PRESENT: RRR. ABSENT: diastolic murmur, rubs, systolic murmur Pulses: PRESENT: normal dorsalis pedis pul Vascular exam: PRESENT: normal capillary refill GI/Abdominal exam: PRESENT: normal bowel sounds, soft. ABSENT: distended, guarding, mass, organolmegaly, rebound, tenderness Rectal exam: PRESENT: deferred Extremities exam: PRESENT: full ROM. ABSENT: calf tenderness, clubbing, pedal edema Neurological exam: PRESENT: alert, awake, oriented to person, oriented to place , oriented to time, oriented to situation, CN II-XII grossly intact. ABSENT: motor sensory deficit Psychiatric exam: PRESENT: appropriate affect, normal mood. ABSENT: homicidal ideation, suicidal ideation Skin exam: PRESENT: dry, intact, warm. ABSENT: cyanosis, rash Results Laboratory Results: 03/28/17 05:30 03/28/17 05:30 03/22/17 03/22/17 03/23/17 23:30 23:30 05:42 Creatine Kinase 61 43 CK-MB (CK-2) 1.39 Troponin I < 0.012 03/23/17 03/23/17 03/23/17 05:42 11:33 11:33 Creatine Kinase 36 CK-MB (CK-2) 1.50 1.49 Troponin I < 0.012 < 0.012 Impressions: Abdomen/Pelvis CT 03/23/17 00:00 IMPRESSION: No acute findings. Findings in the bladder seen 03/09/2017 are no longer present. Bladder ultrasound could be useful for followup. Findings discussed with Dr. Briscoe Guidance Fluoroscopy 03/25/17 00:00 IMPRESSION: SUCCESSFUL PLACEMENT OF A 5 FR DUAL LUMEN 30 CM PICC IN THE right basilic VEIN. Interventional Vascular Procedure 03/25/17 00:00 IMPRESSION: SUCCESSFUL PLACEMENT OF A 5 FR DUAL LUMEN 30 CM PICC IN THE right basilic VEIN. PICC Line Insertion 03/25/17 00:00 IMPRESSION: SUCCESSFUL PLACEMENT OF A 5 FR DUAL LUMEN 30 CM PICC IN THE right basilic VEIN. Assessment & Plan - Diagnosis (1) UTI (urinary tract infection) Qualifiers: Urinary tract infection type: acute cystitis Hematuria presence: without hematuria Qualified Code(s): N30.00 - Acute cystitis without hematuria Is this a current diagnosis for this admission?: YesPlan: Urine blood culture obtained. IV Rocephin given ciprofloxacin failure with follow-up CBC. (2) Ambulatory dysfunction Is this a current diagnosis for this admission?: YesPlan: Patient with recurrent falls, orthostatic blood pressure therapy evaluation ordered (3) Diabetes Qualifiers: Diabetes mellitus type: type 2 Is this a current diagnosis for this admission?: YesPlan: Complicating acute infection continue home regiment with sliding scale insulin. (4) Hyponatremia Is this a current diagnosis for this admission?: YesPlan: Likely secondary to thiazide diuretic currently held. IV saline followed by repeat chemistry evaluation - Time Time Spent: 30 to 50 Minutes
== END 2017-03-30 16:22 | DRG 872 ==
LOC: ER 19:16 → EH 23:20 → 5 03-23 01:35 → 4W 03-25 15:46
PROVIDERS: ADMIT Internal Medicine; ATTEND Internal Medicine
PROC: 02HV33Z Insertion of Infusion Device into Superior Vena Cava, Percutaneous Approach (ICD-10-PCS; principal; 2017-03-25)
PROC: B5181ZA Fluoroscopy of Superior Vena Cava using Low Osmolar Contrast, Guidance (ICD-10-PCS; 2017-03-25)
PROC: B548ZZA Ultrasonography of Superior Vena Cava, Guidance (ICD-10-PCS; 2017-03-25)
DX: A41.9 Sepsis, unspecified organism (principal); N30.00 Acute cystitis without hematuria; E87.1 Hypo-osmolality and hyponatremia; B96.5 Pseudomonas (aeruginosa) (mallei) (pseudomallei) as the cause of diseases classified elsewhere; K80.20 Calculus of gallbladder without cholecystitis without obstruction; E11.9 Type 2 diabetes mellitus without complications; I10 Essential (primary) hypertension; Z79.4 Long term (current) use of insulin; Z79.899 Other long term (current) drug therapy
CPT/HCPCS: 36415; 36569; 74176; 76937; 77001; 80048; 80053; 81001; 82550; 82553; 82607; 82962; 83605; 83735; 84100; 84443; 84484; 85025; 87040; 87086; 96360; 99285; G8978-GP; G8979-GP; G8980-GP; J0692; J0696; J1642; J1644; J2060; J2543; J3490; J7030

== ENCOUNTER 2018-03-28 10:24 | Observation (INO) | payer MEDICARE, OTHER ==
--- NOTE | 2018-03-28 10:57 | RADIOLOGY REPORT (SQ) ---
EXAM DESCRIPTION: CT HEAD WITHOUT COMPLETED DATE/TIME: 03/28/2018 10:37 am REASON FOR STUDY: slurred speech COMPARISON: 03/02/2016 TECHNIQUE: Axial images acquired through the brain without intravenous contrast. Images reviewed wi th bone, brain and subdural windows. Additional sagittal and coronal reconstructions were generated. Images stored on PACS. All CT scanners at this facility use dose modulation, iterative reconstruction, and/or weight based d osing when appropriate to reduce radiation dose to as low as reasonably achievable (ALARA). [facility]: Dose Right [facility]: CareDose [facility]: Dose Right [facility]: Teradose 4D [facility]: [employer] RADIATION DOSE: CT Rad equipment meets quality standard of care and radiation dose reduction techniq ues were employed. CTDIvol: 53.2 mGy. DLP: 1044 mGy-cm. mGy. LIMITATIONS: None. FINDINGS: VENTRICLES: No the ventricles are prominent in size, commensurate with the sulci. The ci sterns are patent. CEREBRUM: Chronic stable small vessel ischemic changes. Small old remote bilateral lacunes. No mass es. No hemorrhage. No midline shift. No evidence for acute infarction. CEREBELLUM: No masses. No hemorrhage. No alteration of density. No evidence for acute infarction. EXTRAAXIAL SPACES: Age related involutional change. No fluid collections. No masses. ORBITS AND GLOBE: No intra- or extraconal masses. Normal contour of globe without masses. CALVARIUM: No fracture. The osseous structures are stable in appearance. As on the prior examinatio n, thinning of the bony cortex in the bilateral parietal posterior regions. PARANASAL SINUSES: Mucous retention cyst or polyp in the right maxillary sinus. SOFT TISSUES: No mass or hematoma. OTHER: Bilateral hearing devices. IMPRESSION: 1 No significant interval changes since the prior examination dated 03/02/2016. No acute intracranial abnormality. 2 Atrophy, chronic small vessel ischemic changes and old small bilateral lacunes. 3. If clinically indicated, further evaluation with MRI Brain maybe helpful. EVIDENCE OF ACUTE STROKE: NO. COMMENT: 1 The results of this examination were discussed with the emergency department provider on 03/28/2018 at 10:50 hours. Quality ID # [id number]: Final reports with documentation of one or more dose reduction techniques (e.g., Au tomated exposure control, adjustment of the mA and/or kV according to patient size, use of iterative reconstruction technique) TECHNICAL DOCUMENTATION: JOB ID: [id number] [email or web address]- All Rights Reserved Reading location - IP/workstation name: [email or web address]
--- NOTE | 2018-03-28 11:05 | RADIOLOGY REPORT (SQ) ---
EXAM DESCRIPTION: CHEST SINGLE VIEW COMPLETED DATE/TIME: 03/28/2018 10:56 am REASON FOR STUDY: SLURRED SPEECH COMPARISON: 03/02/2016 EXAM PARAMETERS: NUMBER OF VIEWS: One view. TECHNIQUE: Single frontal radiographic view of the chest acquired. RADIATION DOSE: NA LIMITATIONS: None. FINDINGS: LUNGS AND PLEURA: Stable minimal to slight atelectasis or scar at the left lung base. El evation of the right hemidiaphragm, stable finding. No acute pulmonary consolidation. No pneumothor ax or pleural effusion. MEDIASTINUM AND HILAR STRUCTURES: No masses. Contour normal. HEART AND VASCULAR STRUCTURES: Heart normal in size. Normal vasculature. BONES: No acute findings. HARDWARE: None in the chest. OTHER: Stable hiatal hernia. IMPRESSION: 1 Stable chronic minimal to slight scar atelectasis at the left lung base. No acute fin dings. TECHNICAL DOCUMENTATION: JOB ID: [id number] [employer]- All Rights Reserved Reading location - IP/workstation name: PAT
[2018-03-28 11:07] LABS: INTERNATIONAL RATION (INR) 0.96; PROTHROMBIN TIME 13.3 SEC (11.4-15.4)
[2018-03-28 11:08] LABS: PARTIAL THROMBOPLASTIN TIME 34.2 SEC (23.5-35.8)
[2018-03-28 11:10] LABS: ABSOLUTE EOSINOPHILS # (AUTO) 0.1 10^3/uL (0.0-0.6); ABSOLUTE LYMPHOCYTES (AUTO) 1.4 10^3/uL (0.5-4.7); ABSOLUTE MONOCYTES (AUTO) 0.6 10^3/uL (0.1-1.4); ABSOLUTE NEUT (AUTO) 4.1 10^3/uL (1.7-8.2); BASOPHILS % (AUTO) 0.6 % (0-2); EOSINOPHILS % (AUTO) 2.3 % (0-6); HEMATOCRIT 47.9 % (36.0-47.0); HEMOGLOBIN 15.9 g/dL (12.0-15.5); MEAN CORPUSCULAR HEMOGLOBIN 28.2 pg (27.0-33.4); MEAN CORPUSCULAR HGB CONC 33.2 g/dL (32.0-36.0); MEAN CORPUSCULAR VOLUME 85 fl (80-97); MONOCYTES % (AUTO) 9.1 % (3-13); PLATELET COUNT 197 10^3/uL (150-450); RED BLOOD COUNT 5.63 10^6/uL (3.72-5.28); RED CELL DISTRIBUTION WIDTH 15.3 % (11.5-14.0); TOTAL CELLS COUNTED % (AUTO) 100 %; WHITE BLOOD COUNT 6.3 10^3/uL (4.0-10.5)
[2018-03-28 11:35] LABS: ALANINE AMINOTRANSFERASE 23 U/L (9-52); ALBUMIN 4.1 g/dL (3.5-5.0); ALKALINE PHOSPHATASE 52 U/L (38-126); ANION GAP 9 (5-19); ASPARTATE AMINO TRANSFERASE 40 U/L (14-36); BILIRUBIN,DIRECT 0.4 mg/dL (0.0-0.4); BILIRUBIN,TOTAL 0.7 mg/dL (0.2-1.3); BLOOD UREA NITROGEN 23 mg/dL (7-20); CALCIUM 10.1 mg/dL (8.4-10.2); CARBON DIOXIDE 25 mmol/L (22-30); CHLORIDE 104 mmol/L (98-107); CREATINE KINASE 67 U/L (30-135); GLUCOSE 97 mg/dL (75-110); POTASSIUM 5.3 mmol/L (3.6-5.0); SODIUM 138.3 mmol/L (137-145); TOTAL PROTEIN 7.2 g/dL (6.3-8.2)
[2018-03-28 11:46] LABS: CREATINE KINASE MB 1.77 ng/mL (<4.55)
[2018-03-28 11:49] LABS: TROPONIN I < 0.012 ng/mL
--- NOTE | 2018-03-28 13:01 | ER Document Report ---
ED General - General Chief Complaint: S/S of Possible Stroke Stated Complaint: SLURRED SPEECH Time Seen by Provider: 03/28/18 10:55 TRAVEL OUTSIDE OF THE [place] IN LAST 30 DAYS: No - HPI Patient complains to provider of: Slurred speech and right-sided weakness Notes: Patient coming in for evaluation of slurred speech and right-sided weakness starting just prior to arrival. Patient has a history of CVA in the past. Patient states occurred around 10:00 last until approximately 1030. Patient family member noticed the sudden change in the patient's voice and also some weakness in the right hand drooping of the right side of face states that however this resolved just prior to arrival to the ER denies any trauma patient otherwise upon my evaluation is alert denies any symptoms denies fever chills nausea vomiting diarrhea - Related Data Allergies/Adverse Reactions: Sulfa (Sulfonamide Antibiotics) Allergy (Mild, Verified 03/28/18 10:26) rash Past Medical History - Social History Smoking Status: Former Smoker Family History: Hypertension Patient has suicidal ideation: No Patient has homicidal ideation: No - Past Medical History Cardiac Medical History: Reports: Hx Hypercholesterolemia, Hx Hypertension Endocrine Medical History: Reports: Hx Diabetes Mellitus Type 2 Renal/ Medical History: Denies: Hx Peritoneal Dialysis GI Medical History: Reports: Hx Gastroesophageal Reflux Disease, Hx Ulcerative Colitis Musculoskeltal Medical History: Reports Hx Arthritis Past Surgical History: Reports: Hx Genitourinary Surgery - Sling, Hx Hysterectomy - Immunizations Hx Diphtheria, Pertussis, Tetanus Vaccination: Yes Hx Pneumococcal Vaccination: 07/25/11 Review of Systems - Review of Systems Constitutional: No symptoms reported EENT: No symptoms reported Cardiovascular: No symptoms reported Respiratory: No symptoms reported Gastrointestinal: No symptoms reported Genitourinary: No symptoms reported Female Genitourinary: No symptoms reported Musculoskeletal: No symptoms reported Skin: No symptoms reported Hematologic/Lymphatic: No symptoms reported Neurological/Psychological: Other - Weakness slurred speech Physical Exam - Vital signs Vitals: Resp BP 19 146/81 H 03/28/18 10:47 03/28/18 10:47 Interpretation: Normal - General General appearance: Appears well, Alert - HEENT Head: Normocephalic, Atraumatic Eyes: Normal Pupils: PERRL - Respiratory Respiratory status: No respiratory distress Chest status: Nontender Breath sounds: Normal Chest palpation: Normal - Cardiovascular Rhythm: Regular Heart sounds: Normal auscultation Murmur: No - Abdominal Inspection: Normal Distension: No distension Bowel sounds: Normal Tenderness: Nontender Organomegaly: No organomegaly - Back Back: Normal, Nontender - Extremities General upper extremity: Normal inspection, Nontender, Normal color, Normal ROM , Normal temperature General lower extremity: Normal inspection, Nontender, Normal color, Normal ROM , Normal temperature, Normal weight bearing. No: Azeem's sign - Neurological Neuro grossly intact: Yes Cognition: Normal Orientation: AAOx4 Otho Coma Scale Eye Opening: Spontaneous Otho Coma Scale Verbal: Oriented Otho Coma Scale Motor: Obeys Commands Otho Coma Scale Total: 15 Speech: Normal Motor strength normal: LUE, RUE, LLE, RLE Sensory: Normal - Psychological Associated symptoms: Normal affect, Normal mood - Skin Skin Temperature: Warm Skin Moisture: Dry Skin Color: Normal Course - Re-evaluation Re-evalutation: 03/28/18 15:38 Center for possible underlying TIA patient's symptoms have resolved CT scan otherwise negative. Patient is only on metoprolol and gout medication. Recommended family admission to the hospital for further evaluation they agree discussed with hospitalist will admit the patient for further evaluation of possible TIA symptoms - Vital Signs Vital signs: Temp Pulse Resp BP Pulse Ox 78 16 130/80 H 98 03/28/18 14:26 03/28/18 14:26 03/28/18 14:26 03/28/18 14:26 - Laboratory Result Diagrams: 03/28/18 10:48 03/28/18 10:48 Laboratory results interpreted by me: 03/28/18 03/28/18 03/28/18 10:48 10:48 12:51 RBC 5.63 H Hgb 15.9 H Hct 47.9 H RDW 15.3 H Potassium 5.3 H BUN 23 H AST 40 H Urine Protein 30 H Urine Blood MODERATE H Ur Leukocyte Esterase SMALL H Urine Ascorbic Acid 20 H Critical Care Note - Critical Care Note Total time excluding time spent on procedures (mins): 35 Comments: Multiple evaluation working patient up for TIA symptoms Discharge - Discharge Clinical Impression: Transient slurred speech, Transient right-sided weakness Condition: Good Disposition: ADMITTED OBSERVATION Admitting Provider: Hospitalist - May Unit Admitted: Telemetry ED NIH Stroke Scale - NIH Stroke Scale *: 1. NIH scale should be completed with appropriate accompanying assessment tools. *: 2. The NIH should reflect what the patient is capable of doing and should not be coached by the clinician. 1a. Level of Consciousness: 0=Alert;keenly responsive -: 1=Drowsy -: 2=Obtunded -: 3=Coma/unresponsive or reflex to noxious stimuli. 1a. Responses: 0 1b. Orientation Questions: a. What month is it? -: b. How old are you? -: 0=Answers both questions correctly. -: 1=Answers one question correctly or patient is intubated or has orotracheal trauma. -: 2=Answers neither question correctly. 1b. Responses: 0 1c. Response to commands: a. Open and close eyes? -: b. Esl Instructor and release hand? -: Credit is given despite weakness. Demonstration of task is permitted. Substitute command if hands cannot be used. -: 0=Performs both tasks correctly -: 1=Performs one task correctly -: 2=Performs neither task correctly 1c. Responses: 0 2. Gaze: Establish eye contact and instruct patient to "Follow my finger" -: 0=Normal -: 1=Partial gaze palsy. Gaze is abnormal in one or both eyes, but where forced deviation or total gaze paresis is not present. -: 2=Forced deviation or total gaze paresis. 2. Responses: 0 3. Visual Belle: Sees fingers in all four quadrants. -: 0=No visual loss. -: 1=Partial hemianopsia. -: 2=Complete hemianopsia. -: 3=Bilateral hemianopsia (including Cortical blindness) 3. Responses: 0 4. Facial Movement: Instruct patient to: -: a. Show me your teeth -: b. Raise your eyebrows -: c. Close your eyes -: d. Smile -: 0=Normal symmetrical movement -: 1=Minor paralysis (flattened nasolabial fold, asymmetry on smiling). -: 2=Partial paralysis (total or near total paralysis of lower face). -: 3=Complete paralysis of upper and lower face 4. Responses: 0 5. Motor functions (left arm): Alternate sides and extend each arm with palms down (90 degrees if sitting or 45 degrees for supine). -: 0=No drift;limb holds for full 10 seconds. -: 1=Drift; limb holds but drifts down before full 10 seconds, but does not hit bed. -: 2=Some effort against gravity; limb cannot get to or maintain position. -: 3=No effort against gravity; limb falls. -: 4=No movement. -: UN=Amputation, joint fusion, explain in comments. 5. Responses (left arm): 0 5. Motor Functions (right arm): Alternate sides and extend each arm with palms down (90 degrees if sitting or 45 degrees for supine). -: 0=No drift;limb holds for full 10 seconds. -: 1=Drift; limb holds but drifts down before full 10 seconds, but does not hit bed. -: 2=Some effort against gravity; limb cannot get to or maintain position. -: 3=No effort against gravity; limb falls. -: 4=No movement. -: UN=Amputation, joint fusion, explain in comments. 5. Responses (right arm): 0 6. Motor Functions (left leg): With patient lying supine, alternate sides and extend each leg (30 degrees always while supine). -: 0=No drift, leg holds position for full 5 seconds -: 1=Drift; leg falls before full 5 seconds but does not hit bed. -: 2=Some effort against gravity, leg falls to bed but some effort against gravity. -: 3=No effort against gravity, leg falls to bed immediately. -: 4=No movement. -: UN=Amputation, joint fusion; explain in comments. 6. Responses (left leg): 0 6. Motor Functions (right leg): With patient lying supine, alternate sides and extend each leg (30 degrees always while supine). -: 0=No drift, leg holds position for full 5 seconds -: 1=Drift; leg falls before full 5 seconds but does not hit bed. -: 2=Some effort against gravity, leg falls to bed but some effort against gravity. -: 3=No effort against gravity, leg falls to bed immediately. -: 4=No movement. -: UN=Amputation, joint fusion; explain in comments. 6. Responses (right leg): 0 7. Limb Ataxia: With eyes open instruct patient to: -: a. "Touch your finger to your nose". -: b. "Touch your heel to your longo" -: 0=Absent -: 1=Present in one limb. -: 2=Present in two limbs. -: UN=Amputation or joint fusion; explain in comments. 7. Responses: 0 8. Sensory: Test sensation using pinprick or noxious stimuli. Test as many body parts as possible. -: 0=Normal;no sensory loss -: 1=Mile to moderate sensory loss (patient feels pin prick but is less sharp on affected side). -: 2=Severe or total sensory loss. 8. Responses: 0 9. Best Language: Instruct patient to: -: a. "Describe what you see in this picture." -: b. "Name the items in this picture." -: c. "Read these sentences." -: 0=No aphasia, normal -: 1=Mild to moderate aphasia. -: 2=Severe aphasia -: 3=Mute, global aphasia, no usable speech or auditory comprehension. 9. Responses: 0 10. Articulation, Dysarthia: Instruct patient to: -: "Read these words" or "Repeat these words" -: 0=Normal -: 1=Mild to moderate; patient may slur some words but can be understood without difficulty. -: 2=Severe; patients speech so slurred as to be unintelligible in the absence of dysphasia. -: UN=Intubated or other physical barrier, explain in comments. 10. Responses: 0 11. Extinction or inattention: 0=No abnormality -: 1= Visual, tactile, auditory, spatial, or personal inattention or extinction to bilateral simulation in one or the sensory modalities. -: 2=Profound vanessa-inattention or vanessa-inattention to more than one modality; does not recognize own hand. 11. Responses: 0 Total Score: 0
[2018-03-28] MEDS ORDERED: ACETAMINOPHEN 325 MG TABLET PO PRN (13:04)
[2018-03-28] MEDS ORDERED: ONDANSETRON 4 MG TAB.RAPDIS PO PRN (13:04)
[2018-03-28] MEDS ORDERED: DOCUSATE SODIUM 100 MG CAPSULE PO PRN (13:04)
[2018-03-28] MEDS ORDERED: ONDANSETRON HCL INJ/PF 4 MG/2 ML SDV IV PRN (13:04)
[2018-03-28] MEDS ORDERED: ALPRAZOLAM 0.25 MG TABLET PO PRN (13:11)
[2018-03-28] MEDS ORDERED: MAGNESIUM HYDROXIDE SUSP 30 ML UDCUP PO PRN (13:11)
[2018-03-28] MEDS ORDERED: ASPIRIN 81 MG TABLET, CHEWABLE PO ONE (13:25)
[2018-03-28 13:39] LABS: APPEARANCE,URINE CLOUDY; BILIRUBIN,URINE NEGATIVE (NEGATIVE); COLOR,URINE YELLOW; GLUCOSE, URINE NEGATIVE (NEGATIVE); KETONES,URINE NEGATIVE (NEGATIVE); LEUKOCYTE ESTERASE,URINE SMALL (NEGATIVE); NITRITE,URINE NEGATIVE (NEGATIVE); PROTEIN,URINE 30 mg/dL (NEGATIVE); URINE SPECIFIC GRAVITY 1.013; UROBILINOGEN,URINE NEGATIVE mg/dL (<2.0)
--- NOTE | 2018-03-28 15:51 | RADIOLOGY REPORT (SQ) ---
EXAM DESCRIPTION: MRI HEAD WITHOUT COMPLETED DATE/TIME: 03/28/2018 3:14 pm REASON FOR STUDY: tia COMPARISON: CT dated 03/28/2018. MRI dated 03/02/2016. TECHNIQUE: Multiplanar imaging includes non-contrasted T1, T2, FLAIR, and Diffusion with ADC map seq uences. Images stored on PACS. LIMITATIONS: None. FINDINGS: ANATOMY: No anomalies. Normal vascular flow voids. Pituitary fossa normal. CSF SPACES: Normal in size and contour. No hemorrhage. CEREBRUM: A few high-signal intensity lesions scattered throughout the white matter on FLAIR imaging with distribution suggesting chronic micro-vascular ischemic change. Sulci and gyri normal in size a nd contour. No evidence of hemorrhage, mass or extraaxial fluid collection. POSTERIOR FOSSA: No signal alteration. No hemorrhage. No edema, masses or mass effect. Internal merrick tory canals, cerebello-pontine angles, mastoids normal. DIFFUSION: Negative for acute or sub-acute infarction. ORBITS: No masses. Globes normal. PARANASAL SINUSES: No fluid levels. Mucosa normal. OTHER: No other significant finding. IMPRESSION: MINIMAL MICROVASCULAR ISCHEMIC CHANGE. OTHERWISE NORMAL STUDY. EVIDENCE OF ACUTE STROKE: NO. TECHNICAL DOCUMENTATION: JOB ID: [id number] [employer]- All Rights Reserved Reading location - IP/workstation name: [email or web address]
--- NOTE | 2018-03-28 16:06 | PDOC H&P ---
History of Present Illness Admission Date/PCP: 03/28/18 GLORIA SHEPPARD MD Patient complains of: R arm weakness, facial droop slurred speech History of Present Illness: MICHELLE ALVAREZ is a very pleasant 87 year old female with past medical history of Hypertension urinary incontinence Gout She lives by herself and is very active and independent at baseline including working out 3 times a week. This morning she was with her son when she noticed R arm heaviness and numbness and her son Rios, who is at the bedside noticed R facial droop and slurred speech. The episode lasted a few minutes and they drove her to the ER, where her NIH stroke scale was 0 upon evaluation by the ER physician. Her son reports that she had a similar episode 2 weeks ago, but did not seek medical help. Her speech is clear she is awake and alert and oriented with no facial droop. the patient requests to be a DNR. Her healthcare POA is her son Rios Alvarez. Past Medical History Cardiac Medical History: Reports: Hyperlipidema, Hypertension Endocrine Medical History: Reports: Diabetes Mellitus Type 2 GI Medical History: Reports: Gastroesophageal Reflux Disease, Ulcerative Colitis Musculoskeltal Medical History: Reports: Arthritis Hematology: Denies: Anemia, Sickle Cell Disease Past Surgical History Past Surgical History: Reports: Hysterectomy Denies: Amputation Social History Smoking Status: Former Smoker Frequency of Alcohol Use: None Hx Recreational Drug Use: No Drugs: None Hx Prescription Drug Abuse: No Family History Family History: Hypertension Parental Family History Reviewed: Yes Children Family History Reviewed: Yes Sibling(s) Family History Reviewed.: Yes Medication/Allergy Allergies/Adverse Reactions: Sulfa (Sulfonamide Antibiotics) Allergy (Mild, Verified 03/28/18 10:26) rash Review of Systems Constitutional: ABSENT: fever(s), headache(s) Eyes: ABSENT: visual disturbances Ears: ABSENT: hearing changes Nose, Mouth, and Throat: ABSENT: sore throat Cardiovascular: ABSENT: chest pain, edema, palpitations Respiratory: ABSENT: cough, dyspnea Gastrointestinal: ABSENT: abdominal pain, diarrhea, vomiting Genitourinary: ABSENT: dysuria, hematuria Musculoskeletal: ABSENT: joint swelling Integumentary: ABSENT: rash Neurological: PRESENT: focal weakness Psychiatric: ABSENT: anxiety Endocrine: ABSENT: heat intolerance Hematologic/Lymphatic: ABSENT: easy bleeding Allergic/Immunologic: ABSENT: seasonal rhinorrhea Physical Exam Vital Signs: Temp Pulse Resp BP Pulse Ox 16 127/85 H 98 03/28/18 11:01 03/28/18 11:01 03/28/18 11:25 General appearance: PRESENT: no acute distress Head exam: PRESENT: normocephalic Eye exam: PRESENT: PERRLA. ABSENT: scleral icterus Ear exam: PRESENT: normal external ear exam Mouth exam: PRESENT: moist Neck exam: ABSENT: tracheal deviation Respiratory exam: PRESENT: symmetrical, unlabored. ABSENT: wheezes Cardiovascular exam: PRESENT: RRR. ABSENT: systolic murmur GI/Abdominal exam: PRESENT: normal bowel sounds, soft. ABSENT: tenderness Rectal exam: PRESENT: deferred Gentrourinary exam: ABSENT: indwelling catheter Extremities exam: ABSENT: pedal edema Musculoskeletal exam: PRESENT: normal inspection Neurological exam: PRESENT: alert, awake, oriented to person, oriented to place , oriented to time, oriented to situation, CN II-XII grossly intact, other - Normal speech. ABSENT: motor sensory deficit Psychiatric exam: PRESENT: appropriate affect Skin exam: ABSENT: rash Results Laboratory Results: 03/28/18 10:48 03/28/18 10:48 03/28/18 03/28/18 03/28/18 10:48 10:48 12:51 WBC 6.3 RBC 5.63 H Hgb 15.9 H Hct 47.9 H MCV 85 MCH 28.2 MCHC 33.2 RDW 15.3 H Plt Count 197 Seg Neutrophils % 65.0 Lymphocytes % 23.0 Monocytes % 9.1 Eosinophils % 2.3 Basophils % 0.6 Absolute Neutrophils 4.1 Absolute Lymphocytes 1.4 Absolute Monocytes 0.6 Absolute Eosinophils 0.1 Absolute Basophils 0.0 Sodium 138.3 Potassium 5.3 H Chloride 104 Carbon Dioxide 25 Anion Gap 9 BUN 23 H Creatinine 0.84 Est GFR ( Amer) > 60 Est GFR (Non-Af Amer) > 60 Glucose 97 Calcium 10.1 Total Bilirubin 0.7 AST 40 H ALT 23 Alkaline Phosphatase 52 Total Protein 7.2 Albumin 4.1 Urine Color YELLOW Urine Appearance CLOUDY Urine pH 7.0 Ur Specific Dickson 1.013 Urine Protein 30 H Urine Glucose (UA) NEGATIVE Urine Ketones NEGATIVE Urine Blood MODERATE H Urine Nitrite NEGATIVE Ur Leukocyte Esterase SMALL H Urine WBC (Auto) 51 Urine RBC (Auto) 64 03/28/18 03/28/18 10:48 10:48 Creatine Kinase 67 CK-MB (CK-2) 1.77 Troponin I < 0.012 Impressions: Chest X-Ray 03/28/18 00:00 IMPRESSION: 1 Stable chronic minimal to slight scar atelectasis at the left lung base. No acute findings. Head CT 03/28/18 00:00 IMPRESSION: 1 No significant interval changes since the prior examination dated 03/02/2016. No acute intracranial abnormality. 2 Atrophy, chronic small vessel ischemic changes and old small bilateral lacunes. 3. If clinically indicated, further evaluation with MRI Brain maybe helpful. EVIDENCE OF ACUTE STROKE: NO. Assessment & Plan - Diagnosis (1) TIA (transient ischemic attack) Is this a current diagnosis for this admission?: Yes Plan: MEND exams ASA, Statin Speech evaluation and therapy OT PT Monoitor on tele Echo, MRI, Carotid dopplers Check HbA1C and fasting Lipid profile (2) Hypertension Is this a current diagnosis for this admission?: Yes Plan: Restart Metoprolol in 48 hrs (3) Urinary incontinence Is this a current diagnosis for this admission?: Yes Plan: Continue Myrbetriq (4) Do not resuscitate Is this a current diagnosis for this admission?: Yes - Time Time Spent: 50 to 70 Minutes
[2018-03-28] MEDS ORDERED: PHARMACY COMMUNICATION ORDER MC NR (16:15)
--- NOTE | 2018-03-28 19:58 | EKG REPORT ---
SEVERITY:- ABNORMAL ECG - SINUS RHYTHM ANTERIOR INFARCT, OLD VERSUS LEAD PLACEMENT : Confirmed by: Rosenda Gil MD 28-Mar-2018 19:57:33
[2018-03-28] MEDS ORDERED: ATORVASTATIN CALCIUM 20 MG TABLET PO SCH (22:00)
[2018-03-29] MEDS ORDERED: LANSOPRAZOLE 15 MG TAB.RAP.DR PO SCH (06:00)
[2018-03-29 07:35] LABS: ANION GAP 12 (5-19); BLOOD UREA NITROGEN 20 mg/dL (7-20); CARBON DIOXIDE 22 mmol/L (22-30); CHLORIDE 104 mmol/L (98-107); CHOLESTEROL 174.51 mg/dL (0-200); GLUCOSE 102 mg/dL (75-110); PHOSPHORUS 3.5 mg/dL (2.5-4.5); TRIGLYCERIDES 150 mg/dL (<150)
[2018-03-29 07:56] LABS: DIRECT LDL 100 mg/dL (<100)
[2018-03-29] MEDS ORDERED: ENOXAPARIN SODIUM INJ 40 MG/0.4 ML DISP.SYRIN SUBCUT SCH (10:00)
[2018-03-29] MEDS ORDERED: ALLOPURINOL 100 MG TABLET PO SCH (10:00)
[2018-03-29] MEDS ORDERED: ASPIRIN 325 MG TABLET, ENT COATED PO SCH (10:00)
[2018-03-29] MEDS ORDERED: (PENDING PHARMACY ID) (Krill Oil [Krill Oil] 500 MG) PO SCH (10:00)
[2018-03-29] MEDS ORDERED: VITAMIN B COMPLEX PO SCH (10:00)
[2018-03-29] MEDS ORDERED: PYRIDOXINE HCL 50 MG TABLET PO SCH (10:00)
--- NOTE | 2018-03-29 16:01 | RADIOLOGY REPORT (SQ) ---
EXAM DESCRIPTION: CAROTID DOPPLER COMPLETED DATE/TIME: 03/29/2018 3:48 pm REASON FOR STUDY: TIA COMPARISON: None. TECHNIQUE: Grayscale ultrasound, Doppler velocity and spectra, and color Doppler images acquired of the extra-cranial carotid and vertebral arteries. Images stored on PACS. LIMITATIONS: None. FINDINGS: RIGHT CAROTID CCA Velocities: Within normal limits. ICA Velocities Peak systolic 0.44 m/s. End diastolic 0.12 m/s. Proximal ICA/CCA peak systolic ratio 0.9. Focal calcific plaque in the carotid bulb. LEFT CAROTID CCA Velocities: Within normal limits. ICA Velocities Peak systolic 0.62 m/s. End diastolic 0.13 m/s. Proximal ICA/CCA peak systolic ratio 1.2. Calcific plaque in the carotid bulb and proximal internal carotid artery. VERTEBRAL ARTERIES: Antegrade flow. Normal waveforms. SUBCLAVIAN ARTERIES: No finding. OTHER: No other significant finding. IMPRESSION: BILATERAL PLAQUE. NO HEMODYNAMICALLY SIGNIFICANT STENOSIS. COMMENT: Quality ID #[id number]: Velocity criteria are extrapolated from the diameter data as defined by t he Society of Radiologists in Ultrasound Consensus Conference. Radiology 2003: 229; 340-346. TECHNICAL DOCUMENTATION: JOB ID: [id number] [employer]- All Rights Reserved Reading location - IP/workstation name: [email or web address]
--- NOTE | 2018-03-29 17:07 | XCELERA REPORT ---
[address] [address] Transthoracic Echocardiogram Report Name: MICHELLE PERSON Age: 87 yrs Gender: Female : 1930 Patient Status: Inpatient Patient Location: [address] [place] [address] Study Date: 03/29/2018 01:51 PM Height: 61 in Weight: 118 lb BSA: 1.5 m2 Procedure: A complete two-dimensional transthoracic echocardiogram was performed (2D, M-mode, spectral and color flow Doppler). The study was technically adequate with some images being suboptimal in quality. Reason For Study: TIA Ordering Physician: HARRIS RANKIN Performed By: Eva Mao Interpretation Summary The left ventricular ejection fraction is normal. There is mild concentric left ventricular hypertrophy. The left ventricle is grossly normal size. Doppler measurements suggest pseudonormalized left ventricular relaxation, which is associated with grade II/IV or mild to moderate diastolic dysfunction Wall motion cannot be accurately commented on, but no definite regional wall motion abnormalities noted. Borderline right ventricular enlargement. The right ventricular systolic function is normal. Borderline left atrial enlargement. The right atrium is normal in size There is no mitral valve stenosis. There is a trace amount of mitral regurgitation There is no aortic valve stenosis No aortic regurgitation is present. There is a trace amount of tricuspid regurgitation Tricuspid regurgitation jet envelope not well defined to measure RV systolic pressure accurately. The aortic root is not well visualized but is probably normal size. The inferior vena cava appeared normal and decreased > 50% with respiration (RAP 5-10 mmHg) Minimal pericardial effusion. No definite cardiac source of CVA/TIA noted on this particular trans- thoracic study. Consider LUIS MIGUEL if clinically indicated. May consider mobile cardiac telemetry monitoring (MCT) for ruling out transient AFIB. MMode/2D Measurements & Calculations RVDd: 2.2 cm LVIDd: 3.6 cm FS: 47.7 % Ao root diam: 2.4 cm IVSd: 0.92 cm LVIDs: 1.9 cm EDV(Teich): 55.9 ml LVPWd: 0.88 cm ESV(Teich): 11.2 ml Ao root area: 4.6 cm2 EF(Teich): 80.0 % LA dimension: 2.5 cm Doppler Measurements & Calculations MV E max debbi: MV P1/2t max debbi: Ao V2 max: LV V1 max P.6 cm/sec 70.1 cm/sec 110.6 cm/sec 4.2 mmHg MV A max debbi: MV P1/2t: 112.7 msec Ao max PG: LV V1 max: 92.8 cm/sec 4.9 mmHg 102.2 cm/sec MV E/A: 0.75 MVA(P1/2t): 2.0 cm2 MV dec slope: 182.1 cm/sec2 MV dec time: 0.37 sec PA V2 max: TR max debbi: 80.5 cm/sec 207.7 cm/sec PA max PG: TR max P.3 mmHg 2.6 mmHg Left Ventricle The left ventricle is grossly normal size. There is mild concentric left ventricular hypertrophy. The left ventricular ejection fraction is normal. Doppler measurements suggest pseudonormalized left ventricular relaxation, which is associated with grade II/IV or mild to moderate diastolic dysfunction. Wall motion cannot be accurately commented on, but no definite regional wall motion abnormalities noted. Right Ventricle Borderline right ventricular enlargement. There is normal right ventricular wall thickness. The right ventricular systolic function is normal. Atria The right atrium is normal in size. Borderline left atrial enlargement. Interarterial septum not well visualized and not well dopplered. Cannot comment on ASD/PFO presence. Mitral Valve The mitral valve is grossly normal. There is no mitral valve stenosis. There is a trace amount of mitral regurgitation. Aortic Valve The aortic valve is grossly normal. There is no aortic valve stenosis. No aortic regurgitation is present. Tricuspid Valve The tricuspid valve is not well visualized, but is grossly normal. There is no tricuspid stenosis. There is a trace amount of tricuspid regurgitation. Tricuspid regurgitation jet envelope not well defined to measure RV systolic pressure accurately. Pulmonic Valve The pulmonic valve is not well visualized. Great Vessels The aortic root is not well visualized but is probably normal size. The inferior vena cava appeared normal and decreased > 50% with respiration (RAP 5-10 mmHg). Effusions Minimal pericardial effusion. Incidental Findings No definite cardiac source of CVA/TIA noted on this particular trans- thoracic study. Consider LUIS MIGUEL if clinically indicated. May consider mobile cardiac telemetry monitoring (MCT) for ruling out transient AFIB. : HARRIS RANKIN > Mildred Moctezuma
[2018-03-29] MEDS ORDERED: MAGNESIUM OXIDE 400 MG TABLET PO ONE (17:30)
[2018-03-29 17:47] VITALS: BP 119/51
--- NOTE | 2018-03-29 18:12 | PDOC DISCHARGE SUMMARY ---
General - Admit/Disc Date/PCP Admission Date/Primary Care Provider: 03/28/18 13:11 GLORIA SHEPPARD MD Discharge Date: 03/29/18 - Discharge Diagnosis (1) TIA (transient ischemic attack) Is this a current diagnosis for this admission?: Yes (2) Hypertension Is this a current diagnosis for this admission?: Yes (3) Urinary incontinence Is this a current diagnosis for this admission?: Yes (4) Do not resuscitate Is this a current diagnosis for this admission?: Yes - Additional Information Resuscitation Status: Do Not Resuscitate Discharge Diet: As Tolerated Discharge Activity: Activity As Tolerated Prescriptions: Magnesium Oxide 400 mg PO DAILY 30 Days #30 tablet Home Medications: Allopurinol [Zyloprim 100 mg Tablet] 200 mg PO DAILY 03/28/18 Metoprolol Succinate [Toprol Xl 50 mg Tab.sr] 50 mg PO DAILY 03/28/18 Mirabegron [Myrbetriq] 50 mg PO DAILY 03/28/18 Allopurinol [Zyloprim 100 mg Tablet] 200 mg PO DAILY tablet 03/29/18 Alprazolam [Xanax 0.25 mg Tablet] 0.25 mg PO BIDP PRN tablet 03/29/18 Aspirin [Ecotrin 325 mg EC Tablet] 325 mg PO DAILY tabec 03/29/18 Krill Oil [Krill Oil] 500 mg PO .DAILY 03/29/18 Magnesium Hydroxide [Milk of Magnesia 30 ml Udcup] 30 ml PO HSP PRN udc Magnesium Oxide 400 mg PO DAILY 30 Days #30 tablet 03/29/18 History of Present Illness History of Present Illness: MICHELLE ALVAREZ is a very pleasant 87 year old female with past medical history of Hypertension urinary incontinence Gout She lives by herself and is very active and independent at baseline including working out 3 times a week. On the morning of admission she was with her son when she noticed R arm heaviness and numbness and her son Rios, who is at the bedside noticed R facial droop and slurred speech. The episode lasted a few minutes and they drove her to the ER, where her NIH stroke scale was 0 upon evaluation by the ER physician. Her son reports that she had a similar episode 2 weeks ago, but did not seek medical help. On admission her speech was clear she was awake and alert and oriented with no facial droop. The patient requested to be a DNR. Her healthcare POA is her son Rios Alvarez. No events overnight- no arrhythmias on tele. Carotid dopplers showed no stenosis. Echo showed some LVH but otherwise normal per verbal report by Dr. Moctezuma. MRI Brain showed no acute CVA. She did well with speech, OT and PT and is stable for discharge home. She is to follow up with her PCP in 1 week. ASA and magnesium were added to her medication regimen. Hemoglobin A1c and Lipid profile were normal. Hospital Course Hospital Course: As above Physical Exam Vital Signs: Temp Pulse Resp BP Pulse Ox 97.4 F 84 18 119/51 L 99 03/29/18 17:46 03/29/18 17:46 03/29/18 17:46 03/29/18 17:46 03/29/18 17:46 Intake & Output 03/28/18 03/29/18 03/30/18 06:59 06:59 06:59 Intake Total 247 474 Output Total 0 Balance 247 474 Weight 53.7 kg General appearance: PRESENT: no acute distress Respiratory exam: PRESENT: symmetrical, unlabored Neurological exam: PRESENT: alert, awake, oriented to person, oriented to place , oriented to time Results Laboratory Results: 03/29/18 05:54 03/29/18 05:54 Sodium 138.0 Potassium 5.0 Chloride 104 Carbon Dioxide 22 Anion Gap 12 BUN 20 Creatinine 0.83 Est GFR ( Amer) > 60 Est GFR (Non-Af Amer) > 60 Glucose 102 Calcium 10.0 Phosphorus 3.5 Magnesium 1.6 Triglycerides 150 Cholesterol 174.51 LDL Cholesterol Direct 100 VLDL Cholesterol 30.0 HDL Cholesterol 43 Impressions: Chest X-Ray 03/28/18 00:00 IMPRESSION: 1 Stable chronic minimal to slight scar atelectasis at the left lung base. No acute findings. Head CT 03/28/18 00:00 IMPRESSION: 1 No significant interval changes since the prior examination dated 03/02/2016. No acute intracranial abnormality. 2 Atrophy, chronic small vessel ischemic changes and old small bilateral lacunes. 3. If clinically indicated, further evaluation with MRI Brain maybe helpful. EVIDENCE OF ACUTE STROKE: NO. Head MRI 03/28/18 00:00 IMPRESSION: MINIMAL MICROVASCULAR ISCHEMIC CHANGE. OTHERWISE NORMAL STUDY. EVIDENCE OF ACUTE STROKE: NO. Carotid Doppler Study 03/29/18 13:07 IMPRESSION: BILATERAL PLAQUE. NO HEMODYNAMICALLY SIGNIFICANT STENOSIS. Qualifiers - * PATIENT BEING DISCHARGED WITH ANY OF THE FOLLOWING DIAGNOSIS: No Plan Time Spent: Greater than 30 Minutes
== END 2018-03-29 18:21 | disposition home or self-care (01) ==
LOC: ER 10:24 → EH 13:11 → 3W 15:14
PROVIDERS: ADMIT Internal Medicine; ATTEND Internal Medicine
DX: G45.9 Transient cerebral ischemic attack, unspecified (principal); I10 Essential (primary) hypertension; R32 Unspecified urinary incontinence; E83.42 Hypomagnesemia; M10.9 Gout, unspecified; I51.7 Cardiomegaly; M19.90 Unspecified osteoarthritis, unspecified site; R53.1 Weakness; R47.81 Slurred speech; F41.9 Anxiety disorder, unspecified; Z66 Do not resuscitate; Z60.2 Problems related to living alone; Z82.49 Family history of ischemic heart disease and other diseases of the circulatory system; Z87.891 Personal history of nicotine dependence; Z98.890 Other specified postprocedural states; Z90.710 Acquired absence of both cervix and uterus; Z79.899 Other long term (current) drug therapy
CPT/HCPCS: 93005; 99291; 36415 ×2; 82553; 82962 ×2; 82550; 83735; 84100; 85025; 85610; 85730; 80048; 80053; 81001; 84484; 83036; 80061; 93306; 93880; 70551; 71045; 70450; 93010; 97116; 97163; 97165; G0378 ×3; A9270 ×6; J1650; J3490 ×2; G8978; G8979; G8980; G8987; G8988; G8989